=== PATIENT | male | born 1950 | race Caucasian/White ===

== ENCOUNTER 2018-03-21 10:11 | Inpatient (IN) | payer MEDICARE, OTHER, SELFPAY ==
[2018-03-21 10:11] VITALS: BP 143/76; PULSE 101; RESP 16; TEMP 36.8; O2SAT 100; BMI 32.5
--- NOTE | 2018-03-21 10:32 | ED.VISSUMM ---
- ER Visit Summary Date of Service: 03/21/18 Chief Complaint: [] Left great toe infection diabetes History of Present Illness: The patient is a 67 M [] left great toe ulcer for a month or 2 he had difficulty obtaining access to the [facility] wound care center reports he woke this morning had a high fever and his left great toe was red and swollen. He has had no trauma to the area no foreign body his diabetes is generally well controlled is no other complaints, he does recall prior infection to that area of the foot related to a metallic foreign body, he recovered from, he has had no recent exposure to foreign bodies Physical Examination: [] Sitting comfortably in the bed he has an obvious infection involving the left great toe head neck chest are unremarkable the lungs are clear the abdomen soft nontender the left lower leg there is obvious warmth and swelling involving the entire great toe at the base of the great toe there is a circular ulcer that has an odor to it no obvious drainage cultures were obtained, dorsalis pedis pulses intact there is no obvious crepitance he is able to flex slightly at the IP joint but complains of pain there is some redness from the toe into the foot it does not extend beyond the ankle the ankle is uninvolved and this is the only lesion to the foot the right foot is unremarkable and the rest of his exam is unremarkable Test Results: [] Emergency Department Course and Treatment: [] Reported fever infection erythema this from the possibility of diabetic foot infection screening labs obtained IV antibiotics wound culture sent Patient's her x-rays show nothing acute, the lab studies are also generally unremarkable see those reports, he was started on IV fluids antibiotics given his age the fact he has diabetes the sudden onset of the fever and the redness and the ulcer and the possibility of more systemic symptoms I have asked the hospital see the patient for further evaluation and admission, they will pursue orthopedic or podiatry consultation on inpatient basis Treatment Plan: [] Disposition: [] Admit stable pending hospitalist evaluation Impression: [] Diabetic foot infection This note was generated with [email or web address] dictation software. It may contain incorrect words, spelling, and punctuation that were not noted in review of the chart prior to signing ED Disposition - Plan for ED Patient: Chief Complaint: Wound Referrals: Malik Valero III, MD [Primary Care Provider] -
[2018-03-21] MEDS: Ondansetron 4 MG/2 ML Vial IV (11:04)
[2018-03-21] MEDS: morphine 8 MG/ML Syringe IV (11:04)
[2018-03-21] MEDS: Diphth,Pertuss(Acell),Tet Vac 0.5 ML Vial IM (11:04)
[2018-03-21 11:28] LABS: Absolute Lymphocyte Count 1.56 X10^3/ul (0.83-4.51); Absolute Neutrophil Count 7.6 X10^3/uL (2.0-7.7); Basophil# 0.02 X10^3/uL; Basophil% 0.2 % (0-1); Eosinophil# 0.17 X10^3/uL; Eosinophils% 1.6 % (0-5); Hemoglobin 13.3 g/dl (13.0-16.5); Lymphocyte # 1.56 X10^3/ul (4.0); Lymphocyte % 15.1 % (19-41); Mean Corp Hgb Conc 33.3 g/gl (32-36); Mean Corpuscular Volume 87.1 fL (80-94); Monocyte# 1.04 X10^3/uL; Neutrophil # 7.56 X10^3/uL (2.7-7.7); POSITIVE COUNT NO; POSITIVE DIFFERENTIAL NO; POSITIVE MORPHOLOGY NO; Platelet Count 328 K/mm3 (150-450); RBC Distribution Width CV 12.9 % (11.6-14.6); RBC Distribution Width SD 41.6 fl (35.1-43.9); Red Blood Count 4.59 M/mm3 (4.6-6.2); White Blood Count 10.4 K/mm3 (4.4-11.0)
--- NOTE | 2018-03-21 11:30 | RAD_ITS ---
STUDY: X-RAY - LEFT FOOT CLINICAL: Male, 67 years old. Infection of the big toe. TECHNIQUE: 3 view(s) of the foot. COMPARISON: None. FINDINGS: There is a small plantar calcaneal spur. Normal visualized subtalar, talonavicular, calcaneocuboid, tarsal and tarsometatarsal articulations. Normal metatarsi. Normal metatarsophalangeal joint of the great toe. There is a bipartite tibial sesamoid. Normal interphalangeal joint of the great toe. Normal phalanges of the great toe. Normal second through fifth metatarsophalangeal joints. Normal interphalangeal joints and phalanges of the lesser toes. Soft tissue swelling overlying the first toe. RAD/Foot min 3 Views IMPRESSION: Soft tissue swelling overlying the great toe. Electronically Signed: Rober Mckeon MD at 12:18 EDT Tel [phone], Service support ,
[2018-03-21 11:32] LABS: Bacteria 0 SEEN /hpf (None Seen); Mucous, Urine 0 SEEN /hpf (<or=2+); Red Blood Cells-Urine 0 SEEN /hpf (0-5); Squamous Epithelial Cells - UA 0 SEEN /hpf (0-5); White Blood Cells 0 SEEN /hpf (0-5)
[2018-03-21 11:33] LABS: Color, Urine Yellow (Yellow); Glucose, Dipstick 100 mg/dl (Normal); Ketone-Dipstick Negative (Negative); Leukocyte Esterase-Dipstick Negative /ul (Negative); Nitrite-Dipstick Negative (Negative); Occult Blood-Urine Negative /ul (Negative); Protein-Dipstick 100 mg/dl (Negative); Specific Gravity, Urine 1.015 (1.002-1.030); Urine Bilirubin Dipstick Negative (Negative); Urine Clarity Clear (Clear); Urine Urobilinogen Normal (Normal)
[2018-03-21 11:41] LABS: Anion Gap 10 (5-15); BUN 23 mg/dL (7-18); BUN/Creat Ratio 16.8 RATIO (10-20); Calcium,Total 9.9 mg/dL (8.5-10.1); Chloride 100 mmol/L (98-107); Creatinine, Serum 1.37 mg/dL (0.70-1.30); EST Glomerular Filtration Rate 55 mL/min (>60); Est Glom Filt Rate - Afr Amer 67 mL/min (>60); Estimated Creatinine Clearance 54.76 ml/min; Glucose 167 mg/dL (74-106); Potassium 4.1 mmol/L (3.5-5.1); Sodium Level 137 mmol/L (136-145)
[2018-03-21 12:11] VITALS: BP 136/80; PULSE 90; RESP 18; O2SAT 96
--- NOTE | 2018-03-21 13:09 | HP.PCM_ITS ---
Problem List (1) Left great toe plantar ulcer Status: Acute (2) Obesity Status: Chronic (3) Hypothyroidism Status: Chronic (4) HLD (hyperlipidemia) Status: Chronic (5) Diabetic autonomic neuropathy Status: Chronic (6) DM2 (diabetes mellitus, type 2) Status: Chronic (7) Benign essential HTN Status: Chronic History of Present Illness Date of Admission: 03/21/18 Chief Complaint: Left great toe ulcer for about 1- 2 months The patient is a 67 year old M with history of diabetes mellitus type 2, hypertension came to ER with left great toe being red and swollen along with fever at home today. Patient has chronic left great toe ulcer for about 1-2 months and progressively getting worse. He was seen by PCP Dr. Malik Valero iii and was referred to wound care 3 times but unfortunately lost his referral paper and could not get access to wound center until next Tuesday. He also has redness over left lower leg near ankle and he was seen in urgent center and was given cream. Per the patient it is getting better. ]Initial basic lab work done in the ER is unremarkable except BUN 23, creatinine 1.37. Serum glucose in BMP 167. Per patient, blood sugar at home stays between 100 -150 mg percent Patient is further admitted for IV antibiotics, podiatry consult and management of ulcer Past Medical History Past Medical History (Chronic Problems): Chronic Problems Obesity (Chronic) Hypothyroidism (Chronic) HLD (hyperlipidemia) (Chronic) Diabetic autonomic neuropathy (Chronic) DM2 (diabetes mellitus, type 2) (Chronic) Benign essential HTN (Chronic) Allergies No Known Allergies Allergy (Verified 03/21/18 10:55) Home Medications: Ambulatory Orders Medication Instructions Recorded Atorvastatin Calcium 40 mg PO DAILY 03/21/18 Hydrochlorothiazide 12.5 mg PO DAILY 03/21/18 Insulin Glargine/Lixisenatide 47 units SQ DAILY 03/21/18 [Soliqua 100 Unit-33 Mcg/ml Pen] Insulin Lispro [Humalog KwikPen] 13 units SQ TID 03/21/18 Levothyroxine Sodium 200 mcg PO DAILY 03/21/18 Metformin HCl [Glucophage] 1,000 mg PO BID 03/21/18 Quinapril HCl 40 mg PO DAILY 03/21/18 Surgical History: tonsillectomy Smoking Status: Never smoker - *Family History Paternal History Items: No pertinent history Review of Systems Constitutional: Reports: Chills, Fever. Denies: Weight Change HEENT: Denies: Head Aches, Sinus Congestion, Sinus Drainage Cardiovascular: Denies: Chest Pain, Palpitations Respiratory: Denies: Cough, Shortness of breath at rest, Sputum production Gastrointestinal: Denies: Abdominal Pain, Nausea, Vomiting Genitourinary: Denies: Dysuria Musculoskeletal: Reports: Joint Pain. Denies: Joint Tenderness Skin: Reports: Rash - Redness in the right foot and right lower leg near ankle/medial malleolus, Wounds Neurological: Denies: Numbness, Tingling, Focal weakness Psychiatric: Denies: Anxiety, Depression, Homicidal Ideations, Suicidal Ideations Hematologic/ Lymphatic: Denies: Easy Bruising, Easy Bleeding VTE Information - Inpt Only VTE Present on Admission: No VTE Mechan Device Prophylaxis: None VTE Pharm Prophylaxis ordered?: Yes Patient Problems: Active and Suspected Problems Left great toe plantar ulcer (Acute) - Physical Exam General: Alert, Oriented x3, Cooperative HEENT: Atraumatic, PERRLA, EOMI, Normocephalic Neck: Supple, No JVD, Negative Carotid Bruits Lungs: Clear to auscultation, Normal air movement Cardiovascular: Regular rate, Regular Rhythm, Normal S1, Normal S2, No murmurs Abdomen: Bowel Sounds Present, Soft, Non Tender, Non-Distended Extremities: No edema, Capillary Refill Less than 3 Seconds Skin: Ulcer/ Wound - Deep ulcer present on the plantar aspect of left great toe. Dry wound with a scant secretion, Rash Present - Erythematous rash present around the right great toe. Erythematous, circular patch of his skin over right lower leg; proximal to medial malleolus. Seems fungal/tinea infection. Rough on texture, probably from topical cream use Musculoskeletal: No Tenderness to Palpation of Joints or Extremities, Arthritic Changes Neurological: Cranial nerves II-XII grossly intact Psych/Mental Status: Normal Affect, Appropriate Vital Signs Temp Pulse Resp BP Pulse Ox 98.2 F 90 18 136/80 H 96 03/21/18 10:11 03/21/18 12:11 03/21/18 12:11 03/21/18 12:11 03/21/18 12:11 Oxygen Delivery Method Room Air Weight: 227 lb 1.218 oz Body Mass Index (BMI) 32.5 Laboratory Tests Past 24 Hrs 03/21/18 03/21/18 03/21/18 11:05 11:05 11:27 WBC 10.4 RBC 4.59 L Hgb 13.3 Hct 40.0 MCV 87.1 MCH 29.0 MCHC 33.3 RDW 12.9 RDW Differential 41.6 Plt Count 328 MPV 10.0 Immature Gran % (Auto) 0.100 Neut % (Auto) 73.0 H Lymph % (Auto) 15.1 L [place] % (Auto) 10.0 Eos % (Auto) 1.6 Baso % (Auto) 0.2 Absolute Neuts (auto) 7.6 Absolute Lymphs (auto) 1.56 Total Counted Not Reportable Sodium 137 Potassium 4.1 Chloride 100 Carbon Dioxide 27.0 Anion Gap 10 BUN 23 H Creatinine 1.37 H Estim Creat Clear Calc 54.76 Est GFR (MDRD) Af Amer 67 Est GFR (MDRD) Non-Af 55 L BUN/Creatinine Ratio 16.8 Glucose 167 H Calcium 9.9 Urine Color Yellow Urine Clarity Clear Urine pH 5.0 Ur Specific [place] 1.015 Urine Protein 100 H Urine Glucose (UA) 100 H Urine Ketones Negative Urine Occult Blood Negative Urine Nitrite Negative Urine Bilirubin Negative Urine Urobilinogen Normal Ur Leukocyte Esterase Negative Urine RBC 0 SEEN Urine WBC 0 SEEN Ur Squamous Epith Cells 0 SEEN Urine Bacteria 0 SEEN Urine Mucus 0 SEEN Assessment/Plan All Active Problems Left great toe plantar ulcer (Acute) The patient is a 67 year old M with history of diabetes mellitus type 2, hypertension came to ER with left great toe being red and swollen along with fever at home today. Patient has chronic left great toe ulcer for about 1-2 months and progressively getting worse. He was seen by PCP Dr. Malik Valero iii and was referred to wound care 3 times but unfortunately lost his referral paper and could not get access to wound center until next Tuesday. He also has redness over left lower leg near ankle and he was seen in urgent center and was given cream. Per the patient it is getting better. ]Initial basic lab work done in the ER is unremarkable except BUN 23, creatinine 1.37. Serum glucose in BMP 167. Per patient, blood sugar at home stays between 100 -150 mg percent Patient is further admitted for IV antibiotics, podiatry consult and management of ulcer 1. Left great toe deep soft tissue infection rule out osteomyelitis, diabetic ulcer: Patient is being admitted on [facility] floor. Patient had IV vancomycin and Zosyn in the ER. Started on IV cefazolin. Upper Shaper consult. MRI left foot ordered. 2. Left lower leg peripheral arterial disease: left posterior tibial and dorsal pedis artery are diminished in volume as compared to right. Lower extremity arterial Doppler ordered. Will start on the Plavix 3. Diabetes mellitus type 2: A1c tomorrow a.m. Accu-Chek before meals and at bedtime and cover with NovoLog sliding scale. Hold metformin. 4. Hypertension and dyslipidemia, hypothyroidism: Home medication reconciliation done. Fasting profile tomorrow a.m. TSH and FT4 tomorrow a.m. Continue levothyroxine. DVT prophylaxis: On Lovenox 40 mg subcut daily. Code Visit Inpatient E&M: 78899 In Hosp L3
[2018-03-21 13:29] VITALS: BMI 32.8
[2018-03-21 13:30] VITALS: BP 138/57; PULSE 87; RESP 16; TEMP 36.7; O2SAT 100
--- NOTE | 2018-03-21 13:34 | MRI_ITS ---
STUDY: MRI LEFT FOREFOOT WITHOUT CONTRAST REASON FOR EXAM: Male, 67 years old. Ulcer of the left great toe x2 months. Increased redness and inflammation TECHNIQUE: Standardized fat and water weighted pulse sequences were obtained in all 3 orthogonal planes. COMPARISON: X-ray March 21, 2018. MRI February 20, 2013 FINDINGS: There is focal defect in the plantar surface of the great toe consistent with wound, series 4 image 03/05. There is subcutaneous edema of the first toe. There is degenerative arthrosis and joint effusion of the metatarsophalangeal joint of the hallux. There is a bipartite tibial sesamoid. Normal interphalangeal joint of the hallux. Marrow edema distal osteomyelitis of the proximal and distal phalanges of the great toe, series 8 images 01/28 through . Normal medial and lateral heads of the flexor hallucis brevis tendons. Normal flexor and extensor hallucis longus tendons. Normal second through fifth metatarsophalangeal (MTP) joints. Normal interphalangeal joints of the second through fifth toes. Normal proximal, middle and distal phalanges of the second through fifth toes. Normal first through fourth intermetatarsal spaces. Normal flexor and extensor tendons of the second through fifth toes. Normal visualized metatarsi. There is diffuse atrophy of the intrinsic muscles of the forefoot consistent with a peripheral neuropathy. MRI/Lower Ext/No Jt/w/o IMPRESSION: Osteomyelitis of the phalanges of the great toe. Electronically Signed: Chris Aguilar MD at 16:19 EDT , Service support ,
[2018-03-21 13:37] VITALS: BMI 32.8
[2018-03-21] MEDS: 0.9% Normal Saline 1,000 ML 75 ML IV (14:10)
[2018-03-21 15:56] LABS: M R Staph aureus DNA By PCR Negative (Negative); Probe Check PASS; Specimen Processing Control PASS; Staph aureus DNA By PCR NEGATIVE (Negative)
[2018-03-21] MEDS: Cefazolin 1 GM/50 ML BAG IV ×2 (16:08→21:50)
[2018-03-21] MEDS: Clopidogrel Bisulfate 75 MG Tablet PO (16:08)
[2018-03-21] MEDS: Insulin Lispro 100 UNIT/ML INSULN.PEN SQ ×2 (16:42→21:51)
[2018-03-21] MEDS: Insulin Lispro 100 UNIT/ML INSULN.PEN 13 UNIT SC (16:42)
[2018-03-21] MEDS: oxyCODONE 5 MG Tablet PO (16:44)
[2018-03-21 16:46] LABS: Bedside Glucose 167 mg/dL (70-110)
--- NOTE | 2018-03-21 17:57 | LEAS ---
Arterial Study - Arterial Study Arterial Study: Bilateral lower extremity noninvasive arterial exam at rest Patient with a left great toe ulceration Right lower extremity The right PT and DP ankle-brachial index at rest are 1.171.07 respectively with a digital index of 0.77. The right posterior tibial and dorsalis pedis Doppler waveforms are triphasic. Volume pulse recordings demonstrate normal amplification at the calf. Ankle and digital waveforms are well maintained. Left lower extremity The left PT and DP ankle-brachial indices at rest are 0.97 and 0.78 respectively. Digital indices were not obtained. The left posterior tibial and dorsalis pedis demonstrate biphasic Doppler waveforms. The volume pulse recordings do not demonstrate amplification at the calf. The ankle and digital waveforms are otherwise well-maintained Impression Normal right lower extremity resting indices and waveforms Abnormal left lower extremity findings with slightly diminished indices and abnormal Doppler waveforms and diminished volume pulse recordings at the calf suspicious for mild to moderate occlusive disease. Suspected location would be femoral-popliteal. Findings would be in the range of mild vascular claudication. Critical ischemia is not identified. Kevin Valero M.D., F.A.C.S.
[2018-03-21] MEDS: Morphine 2 MG/ML Syringe IV ×2 (19:18→23:35)
[2018-03-21 20:02] VITALS: BP 140/59; PULSE 83; RESP 18; TEMP 37.4; O2SAT 96
--- NOTE | 2018-03-21 21:10 | CON.PCM_ITS ---
Reason for Consult Date of Consultation: 03/21/18 Reason for Consultation: Left great toe ulceration with infection History of Present Illness: The patient is a 67 year old with history of diabetes was seen today for left foot/hallux infection w/ ulceration. He relates his blood sugars are overall not controlled. He relates he developed an ulceration to the left 1st toe in January 2018, states he saw his PCP Dr. Valero, who he states referred him to the wound center. Patient relates he never received a call until yesterday and by that time the ulceration was significantly worse and he noticed swelling and redness. He relates this happened rapidly, so he decided to come to the ER for further evaluation. He denies any injury. He was subsequently admitted due to the findings. He has been started on IV antibiotics, and xray and MRI of the foot have been obtained. MRI showed osteomyelitis to the distal and proximal phalanges of the hallux. WBC is within normal limits, CRP is elevated. Patient is afebrile. He denies any pain to the 1st toe, but states he does have some pain to the top of his foot when walking. He is resting in bed comfortably, his is at bedside. He relates he retired Jun 2017. Past Medical History Past Medical History (Chronic Problems): Chronic Problems Obesity (Chronic) Hypothyroidism (Chronic) HLD (hyperlipidemia) (Chronic) Diabetic autonomic neuropathy (Chronic) DM2 (diabetes mellitus, type 2) (Chronic) Benign essential HTN (Chronic) Allergies No Known Allergies Allergy (Verified 03/21/18 10:55) Home Medications: Ambulatory Orders Medication Instructions Recorded Atorvastatin Calcium 40 mg PO QHS 03/21/18 Hydrochlorothiazide 12.5 mg PO QHS 03/21/18 Insulin Glargine/Lixisenatide 47 units SQ BREAKFAST 03/21/18 [Soliqua 100 Unit-33 Mcg/ml Pen] Insulin Lispro [Humalog KwikPen] 13 units SQ TIDCM 03/21/18 Levothyroxine Sodium 200 mcg PO DAILY 03/21/18 Metformin HCl [Glucophage] 1,000 mg PO BIDCM 03/21/18 Quinapril HCl 40 mg PO QHS 03/21/18 Surgical History: tonsillectomy Smoking Status: Never smoker - *Family History Paternal History Items: No pertinent history Review of Systems Constitutional: Denies: Chills, Fever, Night Sweats, Malaise, Fatigue Cardiovascular: Denies: Chest Pain Respiratory: Denies: Shortness of Breath Gastrointestinal: Denies: Nausea, Vomiting Musculoskeletal: Reports: Foot Pain Skin: Reports: Wounds Patient Problems: Active and Suspected Problems Left great toe plantar ulcer (Acute) Objective: MRI left foot from 03/21/18 - bone marrow edema to the proximal and distal phalanges of the hallux consistent with osteomyelitis. Left foot xrays from 03/21/18 - there is soft tissue edema to the hallux, there is no gas in the tissues, there is no cortical destruction or erosion noted to the hallux. - Physical Exam General: Alert, Oriented x3, Cooperative, No apparent distress Extremities: No clubbing, No cyanosis, Capillary Refill Less than 3 Seconds, No Calf Tenderness, - - There is ulceration platnar hallux at level of the sub hallux IPJ - probes to bone - the bone is hard, there is noted to be significant HPK nonviable tissue present to the ulcer site, there is noted to be some very mild drainage present in the wound consistent with infection, there is noted to be some maloder from the wound, there is cellulitis to the left hallux and extends to the dorsal forefoot - appears to be receeding distally from the marked line, there is no streaking, no visible abscess, no blistering, no crepitus present bilateral foot/ankle. No other open ulcerations bilateral foot/ankle, and no other areas of cellulitis bilateral foot/ankle. Large patch of eczema dermatitis to the medial ankle on the left and a small patch of eczema dermatitis to the medial ankle on the right. Sensation is diminished to the foot c/w peripheral neuropathy. Motor function is intact to the foot/ankle bilateral. Muscle strength intact to the foot/ankle bilateral. No gross instability to the foot/ankle bilateral. He reports some tenderness to the dorsal forefoot on the left side, but no other POP or pain on ROM to the foot/ankle bilateral. CFT < 2 seconds to all toes bilateral, no evidence of acute ischemia to the foot/ankle bilateral. DP nonpalpable left foot foot, PT palpable bilateral foot at this time. Noninvasive LEAS with findings concerning for mild to moderate PAD left, right is normal. Toenails 1-5 bilateral are dystrophic. Musculoskeletal: No Muscle Wasting Psych/Mental Status: Normal Affect, Appropriate, Alert and oriented to time, place, person, mood and affect Vital Signs Temp Pulse Resp BP Pulse Ox 99.3 F H 83 18 140/59 H 96 03/21/18 20:02 03/21/18 20:02 03/21/18 20:02 03/21/18 20:02 03/21/18 20:02 Oxygen Delivery Method Room Air Weight: 103.6 kg Body Mass Index (BMI) 32.8 Laboratory Tests Past 24 Hrs 03/21/18 03/21/18 03/21/18 11:05 11:05 11:05 WBC 10.4 RBC 4.59 L Hgb 13.3 Hct 40.0 MCV 87.1 MCH 29.0 MCHC 33.3 RDW 12.9 RDW Differential 41.6 Plt Count 328 MPV 10.0 Immature Gran % (Auto) 0.100 Neut % (Auto) 73.0 H Lymph % (Auto) 15.1 L [place] % (Auto) 10.0 Eos % (Auto) 1.6 Baso % (Auto) 0.2 Absolute Neuts (auto) 7.6 Absolute Lymphs (auto) 1.56 Total Counted Not Reportable Sodium 137 Potassium 4.1 Chloride 100 Carbon Dioxide 27.0 Anion Gap 10 BUN 23 H Creatinine 1.37 H Estim Creat Clear Calc 54.76 Est GFR (MDRD) Af Amer 67 Est GFR (MDRD) Non-Af 55 L BUN/Creatinine Ratio 16.8 Glucose 167 H Calcium 9.9 C-React Prot Ext Range 75.00 H Urine Color Urine Clarity Urine pH Ur Specific [place] Urine Protein Urine Glucose (UA) Urine Ketones Urine Occult Blood Urine Nitrite Urine Bilirubin Urine Urobilinogen Ur Leukocyte Esterase Urine RBC Urine WBC Ur Squamous Epith Cells Urine Bacteria Urine Mucus S.aureus Protein A PCR MRSA (PCR) 03/21/18 03/21/18 11:27 14:05 WBC RBC Hgb Hct MCV MCH MCHC RDW RDW Differential Plt Count MPV Immature Gran % (Auto) Neut % (Auto) Lymph % (Auto) [place] % (Auto) Eos % (Auto) Baso % (Auto) Absolute Neuts (auto) Absolute Lymphs (auto) Total Counted Sodium Potassium Chloride Carbon Dioxide Anion Gap BUN Creatinine Estim Creat Clear Calc Est GFR (MDRD) Af Amer Est GFR (MDRD) Non-Af BUN/Creatinine Ratio Glucose Calcium C-React Prot Ext Range Urine Color Yellow Urine Clarity Clear Urine pH 5.0 Ur Specific [place] 1.015 Urine Protein 100 H Urine Glucose (UA) 100 H Urine Ketones Negative Urine Occult Blood Negative Urine Nitrite Negative Urine Bilirubin Negative Urine Urobilinogen Normal Ur Leukocyte Esterase Negative Urine RBC 0 SEEN Urine WBC 0 SEEN Ur Squamous Epith Cells 0 SEEN Urine Bacteria 0 SEEN Urine Mucus 0 SEEN S.aureus Protein A PCR NEGATIVE MRSA (PCR) Negative POC Glucose 03/21/18 16:41 POC Glucose 167 H Assessment/Plan All Active Problems Left great toe plantar ulcer (Acute) Cellulitis left foot Ulceration down to bone left hallux with osteomyelitis present Diabetic Neuropathy Peripheral arterial disease Eczema dermatitis left and right ankle Reviewed patient's chart and diagnostic data. Reviewed findings with patient. Wound does probe to bone and MRI consistent with osteomyelitis to the distal and proximal phalanges of the left hallux, but overall bone appears to be intact. On exam bone appears intact, hard, and viable at this time. We discussed the options of amputation vs trying to salvage the toe. Reviewed possible benefits vs risks of each. Patient is against amputation at this time, and would like to proceed with attempts at salvage. I would be on board with attempts at salvage, however patinet understands he is ultimately at risk of limb loss. Recommend Infectious Disease consultation due to osteomyelitis, as well as vascular surgery consultation as patient has findings suspicious for mild to moderate occlusive disease per LEAS read. A culture has been obtained and results pending. Continue with board spectrum antibiotics, as he has already noted improvement since admission earlier today. After consent was obtained the ulceration was debrided in excisional fashion removing all nonviable tissue from the site, this was debrided to bleeding ulcer margins, debrided down to the bone layer. This was done using a 15 blade. Post debridement the ulceration measured 1.8cm x 0.7cm and probes to bone. The site was flushed out with copious amounts of normal saline solution, was painted with Betadine and Aquacel Ag and overlying gauze, kerlix and tarun dressing was applied. No anesthesia was needed due to patient's peripheral neuropathy. Hemostasis was achieved with light pressure and gauze. Advised patient strict nonweightbearing to the left foot. Reviewed importance of proper blood sugar control to optimize healing and optimize foot/ankle health. Triamcinolone 0.1% cream was prescribed for eczema dermatitis bilateral ankle (left worse than right). Podiatry will continue to follow. Thank you for consultation.
[2018-03-21] MEDS: Atorvastatin Calcium 40 MG Tablet PO (22:02)
[2018-03-21] MEDS: Lisinopril 40 MG Tablet PO (22:02)
[2018-03-21 23:22] LABS: Bedside Glucose 164 mg/dL (70-110)
[2018-03-21] MEDS: Zolpidem Tartrate 5 MG Tablet PO (23:35)
[2018-03-21] MEDS: 0.9% NaCl Peripheral Flush Adult/Peds IV (23:35)
[2018-03-22 02:02] VITALS: BP 140/60; PULSE 83; RESP 16; TEMP 37.5; O2SAT 94
[2018-03-22] MEDS: Cefazolin 1 GM/50 ML BAG IV (06:22)
[2018-03-22] MEDS: Levothyroxine 100 MCG Tablet 200 MCG PO (06:22)
[2018-03-22] MEDS: Morphine 2 MG/ML Syringe IV (07:02)
[2018-03-22] MEDS: 0.9% NaCl Peripheral Flush Adult/Peds IV (07:03)
[2018-03-22 07:41] VITALS: PULSE 79
[2018-03-22 07:41] LABS: Bedside Glucose 157 mg/dL (70-110)
[2018-03-22 07:44] VITALS: BP 143/76; PULSE 79; RESP 18; TEMP 37.3; O2SAT 97
[2018-03-22 08:29] LABS: Cholesterol 97 mg/dL (200); High Density Lipoprotein 32 mg/dL; T4 Free Direct 1.47 ng/dL (0.76-1.46); Thyroid Stim Hormone (TSH) 0.14 uIU/mL (0.358-3.74); Triglycerides 169 mg/dL; Very Low Density Lipoprotein 34 mg/dL (5-40)
[2018-03-22] MEDS: Insulin Lispro 100 UNIT/ML INSULN.PEN SQ ×4 (08:47→21:46)
[2018-03-22] MEDS: Insulin Lispro 100 UNIT/ML INSULN.PEN 13 UNIT SC ×3 (08:48→17:30)
[2018-03-22] MEDS: hydroCHLOROthiazide 12.5mg 12.5 MG PO (08:49)
[2018-03-22] MEDS: Clopidogrel Bisulfate 75 MG Tablet PO (08:50)
[2018-03-22 09:00] LABS: Hemoglobin A1c 7.8 % (4.2-6.3)
--- NOTE | 2018-03-22 09:50 | CASEMGMT ---
VINOD PINTO Face to Face with patient for initial transition planning/care coordination assessment. RN CM introduced self and role at [facility]. Patient lying in bed, alert and oriented. Patient willing to participate in assessment and is able to answer all questions appropriately. Care providers, pharmacy, and demographics verified. Patient wishes to discharge home will monitor for HHC based on coarse of treatment. Possible need for IV ATBs at discharge. Patient states he has no further needs or concerns at this time. CM to follow for discharge planning needs that may arise. PCP: Marylu Specialists: None Preferred Pharmacy: [facility] Insurance: [facility] Prescription Benefit: [facility] Living Will/HPOA: None, declined information LNOK: Living Arrangements: Lives with in 1 story home, independent. Transportation: Self/ DME/HHC: Patient has crutches, anticipate need for walker. Patient may need HHC if requires IV ATB at discharge. Disposition Plan: Patient to discharge home with family support and follow-up plans in place. Will need HHC if DC'd on IV ATB. Dian GREEN, RN, CM
--- NOTE | 2018-03-22 11:29 | PCM.HP.ID ---
Problem List (1) Osteomyelitis Status: Acute Reason for Consult: osteo Consulted by: Dr. Kellogg History of Present Illness: The patient is a 67 year old M h T2DM who presented with L 1st toe ulcer for past 2 months. No known inciting event, denies any neuropathy. No prior h/o MRSA or skin abscess. Foot had been relatively stable with no need for abx, and he was referred to wound center here. Over past few days, toe acutely became red, swollen, stabbing pain, and clear drainage. No fever or chills. No n/v/d. Given vanc and zosyn in ED, seen by Dr. Kellogg with podiatry, and ulcer debrided down to bone with cxs sent. Now on cefazolin. Full ROS performed and neg except as noted above. - Medical History Past Medical History (Chronic Problems): Chronic Problems Obesity (Chronic) Hypothyroidism (Chronic) HLD (hyperlipidemia) (Chronic) Diabetic autonomic neuropathy (Chronic) DM2 (diabetes mellitus, type 2) (Chronic) Benign essential HTN (Chronic) Allergies/Adverse Reactions: Allergies No Known Allergies Allergy (Verified 03/21/18 10:55) Home Medications: Ambulatory Orders Medication Instructions Recorded Atorvastatin Calcium 40 mg PO QHS 03/21/18 Hydrochlorothiazide 12.5 mg PO QHS 03/21/18 Insulin Glargine/Lixisenatide 47 units SQ BREAKFAST 03/21/18 [Soliqua 100 Unit-33 Mcg/ml Pen] Insulin Lispro [Humalog KwikPen] 13 units SQ TIDCM 03/21/18 Levothyroxine Sodium 200 mcg PO DAILY 03/21/18 Metformin HCl [Glucophage] 1,000 mg PO BIDCM 03/21/18 Quinapril HCl 40 mg PO QHS 03/21/18 - Social History Tobacco Use: non-smoker Vital Signs Temp Pulse Resp BP Pulse Ox 99.2 F H 79 18 143/76 H 97 03/22/18 07:44 03/22/18 07:44 03/22/18 07:44 03/22/18 07:44 03/22/18 07:44 Oxygen Delivery Method Room Air Weight: 103.6 kg Body Mass Index (BMI) 32.8 Microbiology Past 72 Hours 03/21/18 11:00 Gram Stain - Final Wound - Left Foot Wound Culture - Preliminary Mixed Gram Positive Organisms Laboratory Tests Past 24 Hrs 03/21/18 03/21/18 03/21/18 11:05 11:05 11:27 Sodium 137 Potassium 4.1 Chloride 100 Carbon Dioxide 27.0 Anion Gap 10 BUN 23 H Creatinine 1.37 H Estim Creat Clear Calc 54.76 Est GFR (MDRD) Af Amer 67 Est GFR (MDRD) Non-Af 55 L BUN/Creatinine Ratio 16.8 Glucose 167 H Hemoglobin A1c Calcium 9.9 C-React Prot Ext Range 75.00 H Triglycerides Cholesterol LDL Cholesterol VLDL Cholesterol HDL Cholesterol TSH Free T4 Urine Color Yellow Urine Clarity Clear Urine pH 5.0 Ur Specific [place] 1.015 Urine Protein 100 H Urine Glucose (UA) 100 H Urine Ketones Negative Urine Occult Blood Negative Urine Nitrite Negative Urine Bilirubin Negative Urine Urobilinogen Normal Ur Leukocyte Esterase Negative Urine RBC 0 SEEN Urine WBC 0 SEEN Ur Squamous Epith Cells 0 SEEN Urine Bacteria 0 SEEN Urine Mucus 0 SEEN S.aureus Protein A PCR MRSA (PCR) 03/21/18 03/22/18 03/22/18 14:05 07:46 07:46 Sodium Potassium Chloride Carbon Dioxide Anion Gap BUN Creatinine Estim Creat Clear Calc Est GFR (MDRD) Af Amer Est GFR (MDRD) Non-Af BUN/Creatinine Ratio Glucose Hemoglobin A1c 7.8 H Calcium C-React Prot Ext Range Triglycerides 169 Cholesterol 97 LDL Cholesterol 31 VLDL Cholesterol 34 HDL Cholesterol 32 L TSH 0.14 L Free T4 1.47 H Urine Color Urine Clarity Urine pH Ur Specific [place] Urine Protein Urine Glucose (UA) Urine Ketones Urine Occult Blood Urine Nitrite Urine Bilirubin Urine Urobilinogen Ur Leukocyte Esterase Urine RBC Urine WBC Ur Squamous Epith Cells Urine Bacteria Urine Mucus S.aureus Protein A PCR NEGATIVE MRSA (PCR) Negative - Other Studies Radiology: [] reviewed Other Studies: [] Route of nutrition/ use of supplements: [] Nutritional Intake: [] IV Site: [] Shore Catheter: [] - Physical Exam General: Alert, Oriented x3, Cooperative, No apparent distress HEENT: Atraumatic, PERRLA, EOMI Neck: Supple, No Nodes Lungs: Clear to auscultation, Normal air movement Cardiovascular: Regular rate, Regular Rhythm, No murmurs Abdomen: Soft, Non Tender, Non-Distended Extremities: Diminished Peripheral Pulses Skin: Ulcer/ Wound - Foot wrapped IV Site: Peripheral, without redness Musculoskeletal: No Tenderness to Palpation of Joints or Extremities Neurological: Cranial nerves II-XII grossly intact - Assessment/Plan Antibiotics: [] Assessment/Plan: [] Active and Suspected Problems Left great toe plantar ulcer (Acute) L 1st toe osteo with DM - s/p bedside debridement 03/[address] Kellogg. Cxs pending; gram stain showed heavy GPC, GNR, GPR. Will broadly cover with vanc/zosyn for now. Will follow, thank you.
--- NOTE | 2018-03-22 12:02 | PCM.PROGNOTE ---
Patient Problems: Active and Suspected Problems Left great toe plantar ulcer (Acute) Osteomyelitis (Acute) - Physical Exam Vital Signs Temp Pulse Resp BP Pulse Ox 99.2 F H 79 18 143/76 H 97 03/22/18 07:44 03/22/18 07:44 03/22/18 07:44 03/22/18 07:44 03/22/18 07:44 Oxygen Delivery Method Room Air Weight: 103.6 kg Body Mass Index (BMI) 32.8 Intake and Output for Last 24 Hours 03/20/18 03/21/18 03/22/18 23:59 23:59 23:59 Intake Total 2108 647 / 647 Balance 2108 647 / 647 Microbiology Past 72 Hours 03/21/18 11:00 Gram Stain - Final Wound - Left Foot Wound Culture - Preliminary Mixed Gram Positive Organisms Laboratory Tests Past 24 Hrs 03/21/18 03/21/18 03/22/18 11:05 14:05 07:46 Hemoglobin A1c C-React Prot Ext Range 75.00 H Triglycerides 169 Cholesterol 97 LDL Cholesterol 31 VLDL Cholesterol 34 HDL Cholesterol 32 L TSH 0.14 L Free T4 1.47 H S.aureus Protein A PCR NEGATIVE MRSA (PCR) Negative 03/22/18 07:46 Hemoglobin A1c 7.8 H C-React Prot Ext Range Triglycerides Cholesterol LDL Cholesterol VLDL Cholesterol HDL Cholesterol TSH Free T4 S.aureus Protein A PCR MRSA (PCR) POC Glucose 03/22/18 03/21/18 03/21/18 07:36 21:48 16:41 POC Glucose 157 H 164 H 167 H Medical Necessity - Tobacco Use Smoking Status: Never smoker Assessment/Plan All Active Problems Left great toe plantar ulcer (Acute) Osteomyelitis (Acute)
--- NOTE | 2018-03-22 12:17 | PCM.RX.CS ---
Consult Pharmacy has been consulted to manage selected antiobiotic: Vancomycin Type of Consult: New start Suspected Infection: Osteomyelitis Prior Doses of Antibiotics Received/Current Regimen: Received vancomycin 1250mg IV x1 in ER yesterday 03/21/18 at 12:11. Labs: Sodium 137 mmol/L (136-145) 03/21/18 11:05 Potassium 4.1 mmol/L (3.5-5.1) 03/21/18 11:05 Chloride 100 mmol/L (98-107) 03/21/18 11:05 Carbon Dioxide 27.0 mmol/L (21.0-32.0) 03/21/18 11:05 Anion Gap 10 (5-15) 03/21/18 11:05 BUN 23 mg/dL (7-18) H 03/21/18 11:05 Creatinine 1.37 mg/dL (0.70-1.30) H 03/21/18 11:05 Est GFR (MDRD) Af Amer 67 mL/min (>60) 03/21/18 11:05 Est GFR (MDRD) Non-Af 55 mL/min (>60) L 03/21/18 11:05 BUN/Creatinine Ratio 16.8 RATIO (10-20) 03/21/18 11:05 Glucose 167 mg/dL (74-106) H 03/21/18 11:05 Microbiology: Microbiology 03/21/18 11:00 Wound - Left Foot Gram Stain - Final 03/21/18 11:00 Wound - Left Foot Wound Culture - Preliminary Mixed Gram Positive Organisms Weight used for dosin.6 kg Estimated Creatinine Clearance: 55 ml/min Goal Trough: 15-20 mcg/mL Pharmacy Plan for Drug Dosing: Patient did receive the above mentioned 1250mg dose in ER yesterday but since it has been 24 hours since it was given and since it was a small dose for the patient's weight, the plan is to proceed with the initial loading dose as ordered (2000mg) x1, then continue with 1000mg IV q12h after that. A trough will be obtained prior to the 4th dose. Pharmacy Service will continue to monitor and adjust dosing as required. Follow-Up Labs: Trough Vancomycin Labs to be done on [date and time ordered]: 03/23/18 at 23:30 before the dose at midnight
--- NOTE | 2018-03-22 12:25 | NURSING ---
wound photo: left great toe (plantar view)
--- NOTE | 2018-03-22 12:25 | NURSING ---
wound photo: left great toe (dorsal view)
[2018-03-22 12:36] LABS: Bedside Glucose 190 mg/dL (70-110)
--- NOTE | 2018-03-22 13:17 | PCM.PROGNOTE ---
Patient Problems: Active and Suspected Problems Left great toe plantar ulcer (Acute) Osteomyelitis (Acute) Subjective: Patient was seen today for follow up on left great toe infection. He has no new complaints, no complaints of fever, chills, nausea or vomiting. He was resting comfortably in bed, at bedside. ID saw patient and adjusted patient's antibiotics. - Physical Exam General: Alert, Oriented x3, Cooperative, No apparent distress Vital Signs Temp Pulse Resp BP Pulse Ox 99.2 F H 79 18 143/76 H 97 03/22/18 07:44 03/22/18 07:44 03/22/18 07:44 03/22/18 07:44 03/22/18 07:44 Oxygen Delivery Method Room Air Weight: 103.6 kg Body Mass Index (BMI) 32.8 Intake and Output for Last 24 Hours 03/20/18 03/21/18 03/22/18 23:59 23:59 23:59 Intake Total 2109 / 2109 1456 / 1456 Balance 2109 / 2109 1456 / 1456 Microbiology Past 72 Hours 03/21/18 11:00 Gram Stain - Final Wound - Left Foot Wound Culture - Preliminary Mixed Gram Positive Organisms Laboratory Tests Past 24 Hrs 03/21/18 03/21/18 03/22/18 11:05 14:05 07:46 Hemoglobin A1c C-React Prot Ext Range 75.00 H Triglycerides 169 Cholesterol 97 LDL Cholesterol 31 VLDL Cholesterol 34 HDL Cholesterol 32 L TSH 0.14 L Free T4 1.47 H S.aureus Protein A PCR NEGATIVE MRSA (PCR) Negative 03/22/18 07:46 Hemoglobin A1c 7.8 H C-React Prot Ext Range Triglycerides Cholesterol LDL Cholesterol VLDL Cholesterol HDL Cholesterol TSH Free T4 S.aureus Protein A PCR MRSA (PCR) POC Glucose 03/22/18 03/22/18 03/21/18 12:29 07:36 21:48 POC Glucose 190 H 157 H 164 H 03/21/18 16:41 POC Glucose 167 H Medical Necessity - Tobacco Use Smoking Status: Never smoker Assessment/Plan All Active Problems Left great toe plantar ulcer (Acute) Osteomyelitis (Acute) Cellulitis left foot Ulceration down to bone left hallux with osteomyelitis present Diabetic Neuropathy Peripheral arterial disease Eczema dermatitis left and right ankle Improvement noted compared to yesterday. Patient wants to continue with attempts at salvage of the toe. Continue to follow cultures and continue with antibiotic therapy per ID service. Patient has findings suspicious for mild to moderate occlusive disease per LEAS read - recommend patient follow up with vascular surgery. Continue with local wound care, site was packed w/ Iodoform and overlying gauze dressing changes - change daily. Advised patient strict nonweightbearing to the ulcer site left foot. Reviewed importance of proper blood sugar control to optimize healing and optimize foot/ankle health. Triamcinolone 0.1% cream was prescribed for eczema dermatitis bilateral ankle (left worse than right). Podiatry will continue to follow. Thank you for consultation.
[2018-03-22 14:26] VITALS: BP 140/51; PULSE 84; PULSE 90; RESP 18; TEMP 37.3; O2SAT 94
[2018-03-22] MEDS: Piperacil/Tazobactam 3.375 GM/50 ML ML IV ×2 (14:57→21:46)
--- NOTE | 2018-03-22 15:14 | PCM.PN.HOSP ---
Patient Problems: Active and Suspected Problems Left great toe plantar ulcer (Acute) Osteomyelitis (Acute) Subjective: Low Grade Fever, T 99.5 F. Vitals/I&O's: Vital Signs Temp Pulse Resp BP Pulse Ox 99.2 F H 90 18 140/51 H 94 03/22/18 14:26 03/22/18 14:26 03/22/18 14:26 03/22/18 14:26 03/22/18 14:26 Oxygen Delivery Method Room Air Weight: 228 lb 6.382 oz Body Mass Index (BMI) 32.8 Intake and Output for Last 24 Hours 03/20/18 03/21/18 03/22/18 23:59 23:59 23:59 Intake Total 2108 1456 / 1456 Balance 2108 1456 / 1456 General: Alert, Oriented x3, Cooperative HEENT: Atraumatic, PERRLA, EOMI, Normocephalic Neck: Supple, No JVD, Negative Carotid Bruits Lungs: Clear to auscultation, Normal air movement Cardiovascular: Regular rate, Regular Rhythm, Normal S1, Normal S2, No murmurs Abdomen: Bowel Sounds Present, Soft, Non Tender, Non-Distended Extremities: No edema, Capillary Refill Less than 3 Seconds Skin: Ulcer/ Wound - Left great toe ulcer was debrided bedside by coin purse framer. Dressing is dry, Rash Present Musculoskeletal: No Tenderness to Palpation of Joints or Extremities Neurological: Cranial nerves II-XII grossly intact Psych/Mental Status: Normal Affect, Appropriate Microbiology Past 72 Hours 03/21/18 11:00 Wound - Left Foot Gram Stain - Final 03/21/18 11:00 Wound - Left Foot Wound Culture - Preliminary Mixed Gram Positive Organisms Laboratory Results 03/21/18 14:05: S.aureus Protein A PCR NEGATIVE, MRSA (PCR) Negative 03/21/18 16:41: POC Glucose 167 H 03/21/18 21:48: POC Glucose 164 H 03/22/18 07:36: POC Glucose 157 H 03/22/18 07:46: Triglycerides 169, Cholesterol 97, LDL Cholesterol 31, VLDL Cholesterol 34, HDL Cholesterol 32 L, TSH 0.14 L, Free T4 1.47 H 03/22/18 07:46: Hemoglobin A1c 7.8 H 03/22/18 12:29: POC Glucose 190 H Current Medications Acetaminophen (Tylenol) 650 mg PO Q6H PRN PRN PRN Reason: Mild Pain (scale 0-3)/T>100.7 Al Hydroxide/Mg Hydroxide (Mylanta Ii) 30 ml PO Q6H PRN PRN PRN Reason: Gastric Burning Atorvastatin Calcium (Lipitor) 40 mg PO QHS [facility] Betamethasone Valerate (Valisone 0.1% Cream) 1 applic TOPICAL BID [facility]; Protocol Last Admin: 03/22/18 08:50 Dose: 1 applicatio Bisacodyl (Dulcolax) 10 mg RECTAL DAILY PRN PRN PRN Reason: Constipation Clopidogrel Bisulfate (Plavix) 75 mg PO DAILY [facility] Last Admin: 03/22/18 08:50 Dose: 75 mg Dextrose (D50w Syringe) 0 gm IV X1 PRN; Protocol PRN Reason: Hypoglycemia Docusate Sodium (Colace) 200 mg PO BID PRN PRN PRN Reason: Constipation Glucagon () 1 mg IM .X1 PRN PRN Reason: Hypoglycemia Hydrochlorothiazide (Hydrochlorothiazide) 12.5 mg PO DAILY [facility] Last Admin: 03/22/18 08:49 Dose: 12.5 mg Piperacillin Sod/Tazobactam Sod (Zosyn) 3.375 gm in 50 mls @ 12.5 mls/hr IV Q8 [facility] Last Admin: 03/22/18 14:57 Dose: 12.5 mls/hr Vancomycin IV Pharmacy to Dose (1 ea/ Sodium Chloride) 500 mls @ 250 mls/hr IV X1 PRN; Protocol PRN Reason: Rx to Dose Vancomycin HCl (Vancomycin) 1,000 mg in 200 mls @ 200 mls/hr IV Q12H [facility] Insulin Glargine (Lantus (Bkc)) 45 units SC DAILY [facility] Last Admin: 03/22/18 08:48 Dose: 45 u Insulin Human Lispro (Humalog Kwikpen (Bkc)) 0 unit SQ ACHS [facility]; Protocol Last Admin: 03/22/18 12:56 Dose: 2 units Insulin Human Lispro (Humalog Kwikpen (Bkc)) 13 unit SC TIDCM [facility] Last Admin: 03/22/18 12:57 Dose: 13 units Levothyroxine Sodium (Synthroid) 175 mcg PO DAILY@0600 [facility] Lisinopril (Zestril) 40 mg PO QHS [facility] Morphine Sulfate () 1 - 2 mg IV Q4H PRN PRN PRN Reason: SEVERE PAIN (6-10/10) Last Admin: 03/22/18 07:02 Dose: 2 mg Ondansetron HCl (Zofran) 4 mg IV Q8H PRN PRN PRN Reason: Nausea Oxycodone HCl (Oxyir) 5 mg PO Q4H PRN PRN PRN Reason: Moderate Pain (pain scale 4-5) Last Admin: 03/21/18 16:44 Dose: 5 mg Sodium Chloride () 5 - 30 ml IV UD PRN PRN Reason: SALINE FLUSH Last Admin: 03/22/18 07:03 Dose: 10 ml Zolpidem Tartrate (Ambien (Generic)) 5 mg PO QHS PRN PRN PRN Reason: INSOMNIA Last Admin: 03/21/18 23:35 Dose: 5 mg Medical Necessity - Tobacco Use Smoking Status: Never smoker Assessment/Plan All Active Problems Left great toe plantar ulcer (Acute) Osteomyelitis (Acute) The patient is a 67 year old M with history of diabetes mellitus type 2, hypertension came to ER with left great toe being red and swollen along with fever at home today. Patient has chronic left great toe ulcer for about 1-2 months and progressively getting worse. He was seen by PCP Dr. Malik Valero iii and was referred to wound care 3 times but unfortunately lost his referral paper and could not get access to wound center until next Tuesday. He also has redness over left lower leg near ankle and he was seen in urgent center and was given cream. Per the patient it is getting better. ]Initial basic lab work done in the ER is unremarkable except BUN 23, creatinine 1.37. Serum glucose in BMP 167. Per patient, blood sugar at home stays between 100 -150 mg percent Patient is further admitted for IV antibiotics, podiatry consult and management of ulcer 1. Left great toe, both proximal and distal phalanges osteomyelitis , diabetic ulcer: Patient is being admitted on MedSurg floor. Patient had IV vancomycin and Zosyn in the ER. CRP 75. wound prelim Gram stain shows mixed gram-positive cocci, gram-negative rods, gram-positive rods. The patient was seen by ID and recommended to continue IV vancomycin and Zosyn. MRI left foot shows osteomyelitis of both proximal and distal phalanges of left great toe. Patient elected conservative antibiotic management versus left great toe amputation and Dr. Kellogg will follow up after 3 weeks of IV antibiotics to see the response. PICC line ordered. Patient will need long-term, about 4-6 weeks IV antibiotics depending upon wound culture and further antibiotic response. 2. Left lower leg peripheral arterial disease: left posterior tibial and dorsal pedis artery are diminished in volume as compared to right. Lower extremity arterial Doppler VANESA right 1.17, left 0.97 suggestive of mild atherosclerotic peripheral arterial disease of left leg. Dr. Kellogg inform the patient has seen Dr. Kevin Valero in the past and can follow-up in the office. Continue Plavix 3. Diabetes mellitus type 2, uncontrolled: A1c 7.8. Accu-Chek before meals and at bedtime and cover with NovoLog sliding scale. Blood sugar here is reasonably well controlled. Hold metformin. 4. Hypertension and dyslipidemia, hypothyroidism: Home medication reconciliation done. Lipid profile HDL 32, LDL 31 and triglyceride normal. FT4 1.47, TSH 0.14 suggestive of over dose of levothyroxine. Levothyroxine decreased to 175 mcg daily. DVT prophylaxis: On Lovenox 40 mg subcut daily. Clinical Impression(s) from Imaging Studies Foot X-Ray 03/21/18 11:30 IMPRESSION: Soft tissue swelling overlying the great toe. Lower Extremity MRI 03/21/18 13:34 IMPRESSION: Osteomyelitis of the phalanges of the great toe. Microbiology Past 72 Hours 03/21/18 11:00 Wound - Left Foot Gram Stain - Final 03/21/18 11:00 Wound - Left Foot Wound Culture - Preliminary Mixed Gram Positive Organisms Laboratory Results 03/21/18 14:05: S.aureus Protein A PCR NEGATIVE, MRSA (PCR) Negative 03/21/18 16:41: POC Glucose 167 H 03/21/18 21:48: POC Glucose 164 H 03/22/18 07:36: POC Glucose 157 H 03/22/18 07:46: Triglycerides 169, Cholesterol 97, LDL Cholesterol 31, VLDL Cholesterol 34, HDL Cholesterol 32 L, TSH 0.14 L, Free T4 1.47 H 03/22/18 07:46: Hemoglobin A1c 7.8 H 03/22/18 12:29: POC Glucose 190 H Code Visit Inpatient E&M: [id number] [facility] L[facility]
--- NOTE | 2018-03-22 15:24 | PN_ITS ---
Patient Problems: Active and Suspected Problems Left great toe plantar ulcer (Acute) Osteomyelitis (Acute) Subjective: Low Grade Fever, T 99.5 F. Vitals/I&O's: Vital Signs Temp Pulse Resp BP Pulse Ox 99.2 F H 90 18 140/51 H 94 03/22/18 14:26 03/22/18 14:26 03/22/18 14:26 03/22/18 14:26 03/22/18 14:26 Oxygen Delivery Method Room Air Weight: 228 lb 6.382 oz Body Mass Index (BMI) 32.8 Intake and Output for Last 24 Hours 03/20/18 03/21/18 03/22/18 23:59 23:59 23:59 Intake Total 2108 1456 / 1456 Balance 2108 1456 / 1456 General: Alert, Oriented x3, Cooperative HEENT: Atraumatic, PERRLA, EOMI, Normocephalic Neck: Supple, No JVD, Negative Carotid Bruits Lungs: Clear to auscultation, Normal air movement Cardiovascular: Regular rate, Regular Rhythm, Normal S1, Normal S2, No murmurs Abdomen: Bowel Sounds Present, Soft, Non Tender, Non-Distended Extremities: No edema, Capillary Refill Less than 3 Seconds Skin: Ulcer/ Wound - Left great toe ulcer was debrided bedside by musical instrument maker or repairer. Dressing is dry, Rash Present Musculoskeletal: No Tenderness to Palpation of Joints or Extremities Neurological: Cranial nerves II-XII grossly intact Psych/Mental Status: Normal Affect, Appropriate Microbiology Past 72 Hours 03/21/18 11:00 Wound - Left Foot Gram Stain - Final 03/21/18 11:00 Wound - Left Foot Wound Culture - Preliminary Mixed Gram Positive Organisms Laboratory Results 03/21/18 14:05: S.aureus Protein A PCR NEGATIVE, MRSA (PCR) Negative 03/21/18 16:41: POC Glucose 167 H 03/21/18 21:48: POC Glucose 164 H 03/22/18 07:36: POC Glucose 157 H 03/22/18 07:46: Triglycerides 169, Cholesterol 97, LDL Cholesterol 31, VLDL Cholesterol 34, HDL Cholesterol 32 L, TSH 0.14 L, Free T4 1.47 H 03/22/18 07:46: Hemoglobin A1c 7.8 H 03/22/18 12:29: POC Glucose 190 H Current Medications Acetaminophen (Tylenol) 650 mg PO Q6H PRN PRN PRN Reason: Mild Pain (scale 0-3)/T>100.7 Al Hydroxide/Mg Hydroxide (Mylanta Ii) 30 ml PO Q6H PRN PRN PRN Reason: Gastric Burning Atorvastatin Calcium (Lipitor) 40 mg PO QHS [facility] Betamethasone Valerate (Valisone 0.1% Cream) 1 applic TOPICAL BID [facility]; Protocol Last Admin: 03/22/18 08:50 Dose: 1 applicatio Bisacodyl (Dulcolax) 10 mg RECTAL DAILY PRN PRN PRN Reason: Constipation Clopidogrel Bisulfate (Plavix) 75 mg PO DAILY [facility] Last Admin: 03/22/18 08:50 Dose: 75 mg Dextrose (D50w Syringe) 0 gm IV X1 PRN; Protocol PRN Reason: Hypoglycemia Docusate Sodium (Colace) 200 mg PO BID PRN PRN PRN Reason: Constipation Glucagon () 1 mg IM .X1 PRN PRN Reason: Hypoglycemia Hydrochlorothiazide (Hydrochlorothiazide) 12.5 mg PO DAILY [facility] Last Admin: 03/22/18 08:49 Dose: 12.5 mg Piperacillin Sod/Tazobactam Sod (Zosyn) 3.375 gm in 50 mls @ 12.5 mls/hr IV Q8 [facility] Last Admin: 03/22/18 14:57 Dose: 12.5 mls/hr Vancomycin IV Pharmacy to Dose (1 ea/ Sodium Chloride) 500 mls @ 250 mls/hr IV X1 PRN; Protocol PRN Reason: Rx to Dose Vancomycin HCl (Vancomycin) 1,000 mg in 200 mls @ 200 mls/hr IV Q12H [facility] Insulin Glargine (Lantus (Bkc)) 45 units SC DAILY [facility] Last Admin: 03/22/18 08:48 Dose: 45 u Insulin Human Lispro (Humalog Kwikpen (Bkc)) 0 unit SQ ACHS [facility]; Protocol Last Admin: 03/22/18 12:56 Dose: 2 units Insulin Human Lispro (Humalog Kwikpen (Bkc)) 13 unit SC TIDCM [facility] Last Admin: 03/22/18 12:57 Dose: 13 units Levothyroxine Sodium (Synthroid) 175 mcg PO DAILY@0600 [facility] Lisinopril (Zestril) 40 mg PO QHS [facility] Morphine Sulfate () 1 - 2 mg IV Q4H PRN PRN PRN Reason: SEVERE PAIN (6-10/10) Last Admin: 03/22/18 07:02 Dose: 2 mg Ondansetron HCl (Zofran) 4 mg IV Q8H PRN PRN PRN Reason: Nausea Oxycodone HCl (Oxyir) 5 mg PO Q4H PRN PRN PRN Reason: Moderate Pain (pain scale 4-5) Last Admin: 03/21/18 16:44 Dose: 5 mg Sodium Chloride () 5 - 30 ml IV UD PRN PRN Reason: SALINE FLUSH Last Admin: 03/22/18 07:03 Dose: 10 ml Zolpidem Tartrate (Ambien (Generic)) 5 mg PO QHS PRN PRN PRN Reason: INSOMNIA Last Admin: 03/21/18 23:35 Dose: 5 mg Medical Necessity - Tobacco Use Smoking Status: Never smoker Assessment/Plan All Active Problems Left great toe plantar ulcer (Acute) Osteomyelitis (Acute) The patient is a 67 year old M with history of diabetes mellitus type 2, hypertension came to ER with left great toe being red and swollen along with fever at home today. Patient has chronic left great toe ulcer for about 1-2 months and progressively getting worse. He was seen by PCP Dr. Malik Valero iii and was referred to wound care 3 times but unfortunately lost his referral paper and could not get access to wound center until next Tuesday. He also has redness over left lower leg near ankle and he was seen in urgent center and was given cream. Per the patient it is getting better. ]Initial basic lab work done in the ER is unremarkable except BUN 23, creatinine 1.37. Serum glucose in BMP 167. Per patient, blood sugar at home stays between 100 -150 mg percent Patient is further admitted for IV antibiotics, podiatry consult and management of ulcer 1. Left great toe, both proximal and distal phalanges osteomyelitis , diabetic ulcer: Patient is being admitted on MedSurg floor. Patient had IV vancomycin and Zosyn in the ER. CRP 75. wound prelim Gram stain shows mixed gram-positive cocci, gram-negative rods, gram-positive rods. The patient was seen by ID and recommended to continue IV vancomycin and Zosyn. MRI left foot shows osteomyelitis of both proximal and distal phalanges of left great toe. Patient elected conservative antibiotic management versus left great toe amputation and Dr. Kellogg will follow up after 3 weeks of IV antibiotics to see the response. PICC line ordered. Patient will need long-term, about 4-6 weeks IV antibiotics depending upon wound culture and further antibiotic response. 2. Left lower leg peripheral arterial disease: left posterior tibial and dorsal pedis artery are diminished in volume as compared to right. Lower extremity arterial Doppler VANESA right 1.17, left 0.97 suggestive of mild atherosclerotic peripheral arterial disease of left leg. Dr. Kellogg inform the patient has seen Dr. Kevin Valero in the past and can follow-up in the office. Continue Plavix 3. Diabetes mellitus type 2, uncontrolled: A1c 7.8. Accu-Chek before meals and at bedtime and cover with NovoLog sliding scale. Blood sugar here is reasonably well controlled. Hold metformin. 4. Hypertension and dyslipidemia, hypothyroidism: Home medication reconciliation done. Lipid profile HDL 32, LDL 31 and triglyceride normal. FT4 1.47, TSH 0.14 suggestive of over dose of levothyroxine. Levothyroxine decreased to 175 mcg daily. DVT prophylaxis: On Lovenox 40 mg subcut daily. Clinical Impression(s) from Imaging Studies Foot X-Ray 03/21/18 11:30 IMPRESSION: Soft tissue swelling overlying the great toe. Lower Extremity MRI 03/21/18 13:34 IMPRESSION: Osteomyelitis of the phalanges of the great toe. Microbiology Past 72 Hours 03/21/18 11:00 Wound - Left Foot Gram Stain - Final 03/21/18 11:00 Wound - Left Foot Wound Culture - Preliminary Mixed Gram Positive Organisms Laboratory Results 03/21/18 14:05: S.aureus Protein A PCR NEGATIVE, MRSA (PCR) Negative 03/21/18 16:41: POC Glucose 167 H 03/21/18 21:48: POC Glucose 164 H 03/22/18 07:36: POC Glucose 157 H 03/22/18 07:46: Triglycerides 169, Cholesterol 97, LDL Cholesterol 31, VLDL Cholesterol 34, HDL Cholesterol 32 L, TSH 0.14 L, Free T4 1.47 H 03/22/18 07:46: Hemoglobin A1c 7.8 H 03/22/18 12:29: POC Glucose 190 H Code Visit Inpatient E&M: 64077 [facility] L3
[2018-03-22 16:55] LABS: Bedside Glucose 165 mg/dL (70-110)
[2018-03-22 20:37] VITALS: BP 136/50; PULSE 78; RESP 16; TEMP 37; O2SAT 97
[2018-03-22] MEDS: Lisinopril 40 MG Tablet PO (21:45)
[2018-03-22] MEDS: Atorvastatin Calcium 40 MG Tablet PO (21:45)
[2018-03-22 21:56] LABS: Bedside Glucose 249 mg/dL (70-110)
[2018-03-22] MEDS: Zolpidem Tartrate 5 MG Tablet PO (23:05)
[2018-03-22] MEDS: oxyCODONE 5 MG Tablet PO (23:05)
[2018-03-23] MEDS: Vancomycin IV 1,000 MG/200 ML BAG 200 MG IV ×2 (01:55→12:36)
[2018-03-23 02:40] VITALS: BP 115/58; PULSE 73; RESP 16; TEMP 37.1; O2SAT 97
[2018-03-23] MEDS: Levothyroxine 175 MCG Tablet PO (05:35)
[2018-03-23] MEDS: oxyCODONE 5 MG Tablet PO (05:35)
[2018-03-23] MEDS: Piperacil/Tazobactam 3.375 GM/50 ML ML IV ×3 (05:35→21:36)
[2018-03-23] MEDS: Insulin Lispro 100 UNIT/ML INSULN.PEN SQ ×4 (07:16→21:43)
[2018-03-23] MEDS: Insulin Lispro 100 UNIT/ML INSULN.PEN 13 UNIT SC ×2 (07:17→11:10)
[2018-03-23 07:25] LABS: Bedside Glucose 213 mg/dL (70-110)
[2018-03-23 08:22] VITALS: BP 127/60; PULSE 77; PULSE 80; RESP 16; TEMP 37.2; O2SAT 96
[2018-03-23] MEDS: Docusate Sodium 100 MG Capsule 200 MG PO (08:33)
[2018-03-23] MEDS: hydroCHLOROthiazide 12.5mg 12.5 MG PO (08:33)
[2018-03-23] MEDS: Clopidogrel Bisulfate 75 MG Tablet PO (08:34)
--- NOTE | 2018-03-23 09:39 | NURSING ---
wound photo: left great toe (plantar surface)
--- NOTE | 2018-03-23 09:40 | NURSING ---
wound photo: left great toe (dorsal surface)
[2018-03-23 11:11] LABS: Bedside Glucose 298 mg/dL (70-110)
--- NOTE | 2018-03-23 11:26 | PCM.PN.ID ---
Patient Problems: Active and Suspected Problems Left great toe plantar ulcer (Acute) Osteomyelitis (Acute) Subjective: Pain improved, no fever, no n/v/d. - Physical Exam General: Alert, Cooperative, No apparent distress Lungs: Clear to auscultation, Normal air movement Cardiovascular: Regular rate, Regular Rhythm Abdomen: Soft, Non Tender, Non-Distended Skin: No rashes, Incision - foot wrapped Vital Signs Temp Pulse Resp BP Pulse Ox 99.0 F 80 16 127/60 H 96 03/23/18 08:22 03/23/18 08:22 03/23/18 08:22 03/23/18 08:22 03/23/18 08:22 Oxygen Delivery Method Room Air Weight: 103.6 kg Body Mass Index (BMI) 32.8 Intake and Output for Last 24 Hours 03/21/18 03/22/18 03/23/18 23:59 23:59 23:59 Intake Total 2108 1073 / 1073 Balance 2108 1073 / 1073 Microbiology Past 72 Hours 03/21/18 11:00 Gram Stain - Final Wound - Left Foot Wound Culture - Preliminary Beta hemolytic organism Gram positive organism Gram positive jaspal POC Glucose 03/23/18 03/23/18 03/22/18 11:03 07:14 21:43 POC Glucose 298 H 213 H 249 H 03/22/18 03/22/18 16:43 12:29 POC Glucose 165 H 190 H Medical Necessity - Tobacco Use Smoking Status: Never smoker Route of nutrition/ use of supplements: [] Nutritional Intake: [] IV Site: [] Shore Catheter: [] - Assessment/Plan Antibiotics: [] Assessment/Plan: [] Active and Suspected Problems Left great toe plantar ulcer (Acute) L 1st toe osteo with DM - s/p bedside debridement 03/[address] Kellogg. Cxs gram pos, beta hemolytic org, and GPR; gram stain showed heavy GPC, GNR, GPR. Will broadly cover with vanc/zosyn for now. Picc to be placed. Will follow
--- NOTE | 2018-03-23 12:24 | PN_ITS ---
Patient Problems: Active and Suspected Problems Left great toe plantar ulcer (Acute) Osteomyelitis (Acute) Subjective: Patient was seen today for follow up on left 1st toe ulceration infection. He relates overall he is doing well, no complaints of fever, chills, nausea or vomiting. He relates he does have pain to the 1st toe, but appears controlled at this time. He has no new complaints. - Physical Exam General: Alert, Oriented x3, Cooperative, No apparent distress Extremities: Capillary Refill Less than 3 Seconds, No Calf Tenderness, - - Left foot: Capillary Refill Less than 3 Seconds, No Calf Tenderness, - - There is noted improvement - appears improvement of cellulitis, ulceration plantar hallux at level of the sub hallux IPJ, margins of ulceration healthy and viable, there is noted granular tissue present - ulcer down to bone and flexor tendon, no str eaking, no visible abscess, no blistering, no crepitus present and no other open ulcerations, no evidence of acute ischemia present. Psych/Mental Status: Normal Affect, Appropriate, Alert and oriented to time, place, person, mood and affect Vital Signs Temp Pulse Resp BP Pulse Ox 99.0 F 80 16 127/60 H 96 03/23/18 08:22 03/23/18 08:22 03/23/18 08:22 03/23/18 08:22 03/23/18 08:22 Oxygen Delivery Method Room Air Weight: 103.6 kg Body Mass Index (BMI) 32.8 Intake and Output for Last 24 Hours 03/21/18 03/22/18 03/23/18 23:59 23:59 23:59 Intake Total 2108 1073 / 1073 Balance 2108 1073 / 1073 Microbiology Past 72 Hours 03/21/18 11:00 Gram Stain - Final Wound - Left Foot Wound Culture - Preliminary Beta hemolytic organism Gram positive organism Gram positive jaspal POC Glucose 03/23/18 03/23/18 03/22/18 11:03 07:14 21:43 POC Glucose 298 H 213 H 249 H 03/22/18 03/22/18 16:43 12:29 POC Glucose 165 H 190 H Medical Necessity - Tobacco Use Smoking Status: Never smoker Assessment/Plan All Active Problems Left great toe plantar ulcer (Acute) Osteomyelitis (Acute) Cellulitis left foot Ulceration down to bone left hallux with osteomyelitis present Diabetic Neuropathy Peripheral arterial disease Eczema dermatitis left and right ankle Continued improvement noted. Patient wants to continue with attempts at salvage of the toe. Continue to follow cultures and continue with antibiotic therapy per ID service. Spoke with Dr. Isreal Valero [facility] follow up with him as outpatient in office in a couple weeks. Continue with local wound care - pack w/ Iodoform with overlying gauze dressing changes - change daily. Advised patient strict nonweightbearing to the ulcer site left foot. Ordered surgical shoe and an offloading insert has been placed to float and offload the ulceration. Recommend home nursing initially for patient once discharged home. Reviewed importance of proper blood sugar control to optimize healing and optimize foot/ankle health. Triamcinolone 0.1% cream for eczema dermatitis bilateral ankle (left worse than right). Podiatry will continue to follow.
--- NOTE | 2018-03-23 12:28 | NURSING ---
farm machinery set up mechanic called and stated she will be here in about 1 hour for PICC insertion.
--- NOTE | 2018-03-23 13:19 | PCM.PN.HOSP ---
Patient Problems: Active and Suspected Problems Left great toe plantar ulcer (Acute) Osteomyelitis (Acute) Subjective: The patient did not had any fever or chills. Left great toe looks better. Redness and swelling has much decreased. Dressing was changed by our wound nurse. Vitals/I&O's: Vital Signs Temp Pulse Resp BP Pulse Ox 99.0 F 80 16 127/60 H 96 03/23/18 08:22 03/23/18 08:22 03/23/18 08:22 03/23/18 08:22 03/23/18 08:22 Oxygen Delivery Method Room Air Weight: 228 lb 6.382 oz Body Mass Index (BMI) 32.8 Intake and Output for Last 24 Hours 03/21/18 03/22/18 03/23/18 23:59 23:59 23:59 Intake Total 2108 Balance 2108 General: Alert, Oriented x3, Cooperative HEENT: Atraumatic, PERRLA, EOMI, Normocephalic Neck: Supple, No JVD, Negative Carotid Bruits Lungs: Clear to auscultation, Normal air movement Cardiovascular: Regular rate, Regular Rhythm, Normal S1, Normal S2, No murmurs Abdomen: Bowel Sounds Present, Soft, Non Tender, Non-Distended Extremities: No edema, Capillary Refill Less than 3 Seconds Skin: Ulcer/ Wound - Left great toe erythema, induration and swelling has improved. Erythema and swelling has decreased in size as compared to original marking. Ulcer over the plantar aspect of left great toe looks clean surface and deep. No slough., Rash Present Musculoskeletal: No Tenderness to Palpation of Joints or Extremities, Arthritic Changes Neurological: Cranial nerves II-XII grossly intact Psych/Mental Status: Normal Affect, Appropriate Microbiology Past 72 Hours 03/21/18 11:00 Wound - Left Foot Gram Stain - Final 03/21/18 11:00 Wound - Left Foot Wound Culture - Preliminary Beta hemolytic organism Gram positive organism Gram positive jaspal Laboratory Results 03/22/18 16:43: POC Glucose 165 H 03/22/18 21:43: POC Glucose 249 H 03/23/18 07:14: POC Glucose 213 H 03/23/18 11:03: POC Glucose 298 H Current Medications Acetaminophen (Tylenol) 650 mg PO Q6H PRN PRN PRN Reason: Mild Pain (scale 0-3)/T>100.7 Al Hydroxide/Mg Hydroxide (Mylanta Ii) 30 ml PO Q6H PRN PRN PRN Reason: Gastric Burning Atorvastatin Calcium (Lipitor) 40 mg PO QHS [facility] Last Admin: 03/22/18 21:45 Dose: 40 mg Betamethasone Valerate (Valisone 0.1% Cream) 1 applic TOPICAL BID [facility]; Protocol Last Admin: 03/23/18 08:34 Dose: 1 applicatio Bisacodyl (Dulcolax) 10 mg RECTAL DAILY PRN PRN PRN Reason: Constipation Clopidogrel Bisulfate (Plavix) 75 mg PO DAILY [facility] Last Admin: 03/23/18 08:34 Dose: 75 mg Dextrose (D50w Syringe) 0 gm IV X1 PRN; Protocol PRN Reason: Hypoglycemia Docusate Sodium (Colace) 200 mg PO BID PRN PRN PRN Reason: Constipation Last Admin: 03/23/18 08:33 Dose: 200 mg Glucagon () 1 mg IM .X1 PRN PRN Reason: Hypoglycemia Hydrochlorothiazide (Hydrochlorothiazide) 12.5 mg PO DAILY [facility] Last Admin: 03/23/18 08:33 Dose: 12.5 mg Piperacillin Sod/Tazobactam Sod (Zosyn) 3.375 gm in 50 mls @ 12.5 mls/hr IV Q8 [facility] Last Admin: 03/23/18 05:35 Dose: 12.5 mls/hr Vancomycin IV Pharmacy to Dose (1 ea/ Sodium Chloride) 500 mls @ 250 mls/hr IV X1 PRN; Protocol PRN Reason: Rx to Dose Vancomycin HCl (Vancomycin) 1,000 mg in 200 mls @ 200 mls/hr IV Q12H [facility] Last Admin: 03/23/18 12:36 Dose: 200 mls/hr Insulin Glargine (Lantus (Bkc)) 45 units SC DAILY [facility] Last Admin: 03/23/18 08:34 Dose: 45 u Insulin Human Lispro (Humalog Kwikpen (Bkc)) 0 unit SQ ACHS [facility]; Protocol Last Admin: 03/23/18 11:09 Dose: 4 units Insulin Human Lispro (Humalog Kwikpen (Bkc)) 13 unit SC TIDCM [facility] Last Admin: 03/23/18 11:10 Dose: 13 units Levothyroxine Sodium (Synthroid) 175 mcg PO DAILY@0600 [facility] Last Admin: 03/23/18 05:35 Dose: 175 mcg Lisinopril (Zestril) 40 mg PO QHS [facility] Last Admin: 03/22/18 21:45 Dose: 40 mg Morphine Sulfate () 1 - 2 mg IV Q4H PRN PRN PRN Reason: SEVERE PAIN (6-10/10) Last Admin: 03/22/18 07:02 Dose: 2 mg Ondansetron HCl (Zofran) 4 mg IV Q8H PRN PRN PRN Reason: Nausea Oxycodone HCl (Oxyir) 5 mg PO Q4H PRN PRN PRN Reason: Moderate Pain (pain scale 4-5) Last Admin: 03/23/18 05:35 Dose: 5 mg Sodium Chloride () 5 - 30 ml IV UD PRN PRN Reason: SALINE FLUSH Last Admin: 03/22/18 07:03 Dose: 10 ml Zolpidem Tartrate (Ambien (Generic)) 5 mg PO QHS PRN PRN PRN Reason: INSOMNIA Last Admin: 03/22/18 23:05 Dose: 5 mg Medical Necessity - Tobacco Use Smoking Status: Never smoker Assessment/Plan All Active Problems Left great toe plantar ulcer (Acute) Osteomyelitis (Acute) The patient is a 67 year old M with history of diabetes mellitus type 2, hypertension came to ER with left great toe being red and swollen along with fever at home today. Patient has chronic left great toe ulcer for about 1-2 months and progressively getting worse. He was seen by PCP Dr. Malik Valero iii and was referred to wound care 3 times but unfortunately lost his referral paper and could not get access to wound center until next Tuesday. He also has redness over left lower leg near ankle and he was seen in urgent center and was given cream. Per the patient it is getting better. ]Initial basic lab work done in the ER is unremarkable except BUN 23, creatinine 1.37. Serum glucose in BMP 167. Per patient, blood sugar at home stays between 100 -150 mg percent Patient is further admitted for IV antibiotics, podiatry consult and management of ulcer 1. Left great toe, both proximal and distal phalanges osteomyelitis , diabetic ulcer: Patient is being admitted on MedSur floor. Patient had IV vancomycin and Zosyn in the ER. CRP 75. wound prelim Gram stain shows mixed gram-positive cocci, gram-negative rods, gram-positive rods. Full wound culture report is pending. The patient was seen by ID and recommended to continue IV vancomycin and Zosyn. MRI left foot shows osteomyelitis of both proximal and distal phalanges of left great toe. Patient elected conservative antibiotic management over left great toe amputation and Dr. Kellogg will follow up after 3 weeks of IV antibiotics to see the response. PICC line ordered. Patient will need long-term, about 4-6 weeks IV antibiotics depending upon wound culture and further antibiotic response. 2. Left lower leg peripheral arterial disease: left posterior tibial and dorsal pedis artery are diminished in volume as compared to right. Lower extremity arterial Doppler VANESA right 1.17, left 0.97 suggestive of mild atherosclerotic peripheral arterial disease of left leg. Dr. Kellogg inform the patient has seen Dr. Kevin Valero in the past and can follow-up in the office. Continue Plavix 3. Diabetes mellitus type 2, uncontrolled: A1c 7.8. Blood sugar was high in the range of 213-298. Lantus dose and Humalog insulin increased. Accu-Chek before meals and at bedtime and cover with Humalog sliding scale. Hold metformin. 4. hypothyroidism: FT4 1.47, TSH 0.14 suggestive of over dose of levothyroxine. Levothyroxine decreased to 175 mcg daily. 5 Hypertension blood pressure is controlled. dyslipidemia : Lipid profile HDL 32, LDL 31 and triglyceride normal. Home medication reconciliation done. DVT prophylaxis: On Lovenox 40 mg subcut daily. Discharge plan: After wound culture is fully reported, antibiotic will be is selected as per ID recommendation and patient will be sent home on IV antibiotics. Clinical Impression(s) from Imaging Studies Foot X-Ray 03/21/18 11:30 IMPRESSION: Soft tissue swelling overlying the great toe. Lower Extremity MRI 03/21/18 13:34 IMPRESSION: Osteomyelitis of the phalanges of the great toe. Microbiology Past 72 Hours 03/21/18 11:00 Wound - Left Foot Gram Stain - Final 03/21/18 11:00 Wound - Left Foot Wound Culture - Preliminary Mixed Gram Positive Organisms Laboratory Results 03/21/18 14:05: S.aureus Protein A PCR NEGATIVE, MRSA (PCR) Negative 03/21/18 16:41: POC Glucose 167 H 10/16/18 21:48: POC Glucose 164 H 03/22/18 07:36: POC Glucose 157 H 03/22/18 07:46: Triglycerides 169, Cholesterol 97, LDL Cholesterol 31, VLDL Cholesterol 34, HDL Cholesterol 32 L, TSH 0.14 L, Free T4 1.47 H 03/22/18 07:46: Hemoglobin A1c 7.8 H 03/22/18 12:29: POC Glucose 190 H Code Visit Inpatient E&M: 60825 [facility] L3
--- NOTE | 2018-03-23 13:32 | PN_ITS ---
Patient Problems: Active and Suspected Problems Left great toe plantar ulcer (Acute) Osteomyelitis (Acute) Subjective: The patient did not had any fever or chills. Left great toe looks better. Redness and swelling has much decreased. Dressing was changed by our wound nurse. Vitals/I&O's: Vital Signs Temp Pulse Resp BP Pulse Ox 99.0 F 80 16 127/60 H 96 03/23/18 08:22 03/23/18 08:22 03/23/18 08:22 03/23/18 08:22 03/23/18 08:22 Oxygen Delivery Method Room Air Weight: 228 lb 6.382 oz Body Mass Index (BMI) 32.8 Intake and Output for Last 24 Hours 03/21/18 03/22/18 03/23/18 23:59 23:59 23:59 Intake Total 2108 Balance 2108 General: Alert, Oriented x3, Cooperative HEENT: Atraumatic, PERRLA, EOMI, Normocephalic Neck: Supple, No JVD, Negative Carotid Bruits Lungs: Clear to auscultation, Normal air movement Cardiovascular: Regular rate, Regular Rhythm, Normal S1, Normal S2, No murmurs Abdomen: Bowel Sounds Present, Soft, Non Tender, Non-Distended Extremities: No edema, Capillary Refill Less than 3 Seconds Skin: Ulcer/ Wound - Left great toe erythema, induration and swelling has improved. Erythema and swelling has decreased in size as compared to original marking. Ulcer over the plantar aspect of left great toe looks clean surface and deep. No slough., Rash Present Musculoskeletal: No Tenderness to Palpation of Joints or Extremities, Arthritic Changes Neurological: Cranial nerves II-XII grossly intact Psych/Mental Status: Normal Affect, Appropriate Microbiology Past 72 Hours 03/21/18 11:00 Wound - Left Foot Gram Stain - Final 03/21/18 11:00 Wound - Left Foot Wound Culture - Preliminary Beta hemolytic organism Gram positive organism Gram positive jaspal Laboratory Results 03/22/18 16:43: POC Glucose 165 H 03/22/18 21:43: POC Glucose 249 H 03/23/18 07:14: POC Glucose 213 H 03/23/18 11:03: POC Glucose 298 H Current Medications Acetaminophen (Tylenol) 650 mg PO Q6H PRN PRN PRN Reason: Mild Pain (scale 0-3)/T>100.7 Al Hydroxide/Mg Hydroxide (Mylanta Ii) 30 ml PO Q6H PRN PRN PRN Reason: Gastric Burning Atorvastatin Calcium (Lipitor) 40 mg PO QHS [facility] Last Admin: 03/22/18 21:45 Dose: 40 mg Betamethasone Valerate (Valisone 0.1% Cream) 1 applic TOPICAL BID [facility]; Protocol Last Admin: 03/23/18 08:34 Dose: 1 applicatio Bisacodyl (Dulcolax) 10 mg RECTAL DAILY PRN PRN PRN Reason: Constipation Clopidogrel Bisulfate (Plavix) 75 mg PO DAILY [facility] Last Admin: 03/23/18 08:34 Dose: 75 mg Dextrose (D50w Syringe) 0 gm IV X1 PRN; Protocol PRN Reason: Hypoglycemia Docusate Sodium (Colace) 200 mg PO BID PRN PRN PRN Reason: Constipation Last Admin: 03/23/18 08:33 Dose: 200 mg Glucagon () 1 mg IM .X1 PRN PRN Reason: Hypoglycemia Hydrochlorothiazide (Hydrochlorothiazide) 12.5 mg PO DAILY [facility] Last Admin: 03/23/18 08:33 Dose: 12.5 mg Piperacillin Sod/Tazobactam Sod (Zosyn) 3.375 gm in 50 mls @ 12.5 mls/hr IV Q8 [facility] Last Admin: 03/23/18 05:35 Dose: 12.5 mls/hr Vancomycin IV Pharmacy to Dose (1 ea/ Sodium Chloride) 500 mls @ 250 mls/hr IV X1 PRN; Protocol PRN Reason: Rx to Dose Vancomycin HCl (Vancomycin) 1,000 mg in 200 mls @ 200 mls/hr IV Q12H [facility] Last Admin: 03/23/18 12:36 Dose: 200 mls/hr Insulin Glargine (Lantus (Bkc)) 45 units SC DAILY [facility] Last Admin: 03/23/18 08:34 Dose: 45 u Insulin Human Lispro (Humalog Kwikpen (Bkc)) 0 unit SQ ACHS [facility]; Protocol Last Admin: 03/23/18 11:09 Dose: 4 units Insulin Human Lispro (Humalog Kwikpen (Bkc)) 13 unit SC TIDCM [facility] Last Admin: 03/23/18 11:10 Dose: 13 units Levothyroxine Sodium (Synthroid) 175 mcg PO DAILY@0600 [facility] Last Admin: 03/23/18 05:35 Dose: 175 mcg Lisinopril (Zestril) 40 mg PO QHS [facility] Last Admin: 03/22/18 21:45 Dose: 40 mg Morphine Sulfate () 1 - 2 mg IV Q4H PRN PRN PRN Reason: SEVERE PAIN (6-10/10) Last Admin: 03/22/18 07:02 Dose: 2 mg Ondansetron HCl (Zofran) 4 mg IV Q8H PRN PRN PRN Reason: Nausea Oxycodone HCl (Oxyir) 5 mg PO Q4H PRN PRN PRN Reason: Moderate Pain (pain scale 4-5) Last Admin: 03/23/18 05:35 Dose: 5 mg Sodium Chloride () 5 - 30 ml IV UD PRN PRN Reason: SALINE FLUSH Last Admin: 03/22/18 07:03 Dose: 10 ml Zolpidem Tartrate (Ambien (Generic)) 5 mg PO QHS PRN PRN PRN Reason: INSOMNIA Last Admin: 03/22/18 23:05 Dose: 5 mg Medical Necessity - Tobacco Use Smoking Status: Never smoker Assessment/Plan All Active Problems Left great toe plantar ulcer (Acute) Osteomyelitis (Acute) The patient is a 67 year old M with history of diabetes mellitus type 2, hypertension came to ER with left great toe being red and swollen along with fever at home today. Patient has chronic left great toe ulcer for about 1-2 months and progressively getting worse. He was seen by PCP Dr. Malik Valero iii and was referred to wound care 3 times but unfortunately lost his referral paper and could not get access to wound center until next Tuesday. He also has redness over left lower leg near ankle and he was seen in urgent center and was given cream. Per the patient it is getting better. ]Initial basic lab work done in the ER is unremarkable except BUN 23, creatinine 1.37. Serum glucose in BMP 167. Per patient, blood sugar at home stays between 100 -150 mg percent Patient is further admitted for IV antibiotics, podiatry consult and management of ulcer 1. Left great toe, both proximal and distal phalanges osteomyelitis , diabetic ulcer: Patient is being admitted on [facility] floor. Patient had IV vancomycin and Zosyn in the ER. CRP 75. wound prelim Gram stain shows mixed gram-positive cocci, gram-negative rods, gram-positive rods. Full wound culture report is pending. The patient was seen by ID and recommended to continue IV vancomycin and Zosyn. MRI left foot shows osteomyelitis of both proximal and distal phalanges of left great toe. Patient elected conservative antibiotic management over left great toe amputation and Dr. Kellogg will follow up after 3 weeks of IV antibiotics to see the response. PICC line ordered. Patient will need long- term, about 4-6 weeks IV antibiotics depending upon wound culture and further antibiotic response. 2. Left lower leg peripheral arterial disease: left posterior tibial and dorsal pedis artery are diminished in volume as compared to right. Lower extremity arterial Doppler VANESA right 1.17, left 0.97 suggestive of mild atherosclerotic peripheral arterial disease of left leg. Dr. Kellogg inform the patient has seen Dr. Kevin Valero in the past and can follow-up in the office. Continue Plavix 3. Diabetes mellitus type 2, uncontrolled: A1c 7.8. Blood sugar was high in the range of 213-298. Lantus dose and Humalog insulin increased. Accu-Chek before meals and at bedtime and cover with Humalog sliding scale. Hold metformin. 4. hypothyroidism: FT4 1.47, TSH 0.14 suggestive of over dose of levothyroxine. Levothyroxine decreased to 175 mcg daily. 5 Hypertension blood pressure is controlled. dyslipidemia : Lipid profile HDL 32, LDL 31 and triglyceride normal. Home medication reconciliation done. DVT prophylaxis: On Lovenox 40 mg subcut daily. Discharge plan: After wound culture is fully reported, antibiotic will be is selected as per ID recommendation and patient will be sent home on IV antibiotics. Clinical Impression(s) from Imaging Studies Foot X-Ray 03/21/18 11:30 IMPRESSION: Soft tissue swelling overlying the great toe. Lower Extremity MRI 03/21/18 13:34 IMPRESSION: Osteomyelitis of the phalanges of the great toe. Microbiology Past 72 Hours 03/21/18 11:00 Wound - Left Foot Gram Stain - Final 03/21/18 11:00 Wound - Left Foot Wound Culture - Preliminary Mixed Gram Positive Organisms Laboratory Results 03/21/18 14:05: S.aureus Protein A PCR NEGATIVE, MRSA (PCR) Negative 03/21/18 16:41: POC Glucose 167 H 10/16/18 21:48: POC Glucose 164 H 03/22/18 07:36: POC Glucose 157 H 03/22/18 07:46: Triglycerides 169, Cholesterol 97, LDL Cholesterol 31, VLDL Cholesterol 34, HDL Cholesterol 32 L, TSH 0.14 L, Free T4 1.47 H 03/22/18 07:46: Hemoglobin A1c 7.8 H 03/22/18 12:29: POC Glucose 190 H Code Visit Inpatient E&M: 71091 Subs Hosp L3
[2018-03-23 14:01] VITALS: BP 135/61; PULSE 76; RESP 18; TEMP 37.1; O2SAT 97
[2018-03-23] MEDS: Insulin Lispro 100 UNIT/ML INSULN.PEN 17 UNIT SC (17:02)
[2018-03-23 17:16] LABS: Bedside Glucose 178 mg/dL (70-110)
[2018-03-23 21:29] VITALS: BP 146/53; PULSE 80; RESP 16; TEMP 36.9; O2SAT 97
[2018-03-23] MEDS: Lisinopril 40 MG Tablet PO (21:39)
[2018-03-23] MEDS: Atorvastatin Calcium 40 MG Tablet PO (21:39)
[2018-03-23 21:55] LABS: Bedside Glucose 156 mg/dL (70-110)
[2018-03-24 00:17] LABS: Vancomycin, Trough Level 15.9 ug/mL (5.0-15.0)
--- NOTE | 2018-03-24 00:43 | PCM.RX.CS ---
Consult Pharmacy has been consulted to manage selected antiobiotic: Vancomycin Type of Consult: Follow-up Suspected Infection: Osteomyelitis Prior Doses of Antibiotics Received/Current Regimen: Medications Vancomycin HCl (Vancomycin) 1,000 mg in 200 mls @ 200 mls/hr IV Q12H [facility] Last Admin: 03/23/18 12:36 Dose: 200 mls/hr Labs: Sodium 137 mmol/L (136-145) 03/21/18 11:05 Potassium 4.1 mmol/L (3.5-5.1) 03/21/18 11:05 Chloride 100 mmol/L (98-107) 03/21/18 11:05 Carbon Dioxide 27.0 mmol/L (21.0-32.0) 03/21/18 11:05 Anion Gap 10 (5-15) 03/21/18 11:05 BUN 23 mg/dL (7-18) H 03/21/18 11:05 Creatinine 1.37 mg/dL (0.70-1.30) H 03/21/18 11:05 Est GFR (MDRD) Af Amer 67 mL/min (>60) 03/21/18 11:05 Est GFR (MDRD) Non-Af 55 mL/min (>60) L 03/21/18 11:05 BUN/Creatinine Ratio 16.8 RATIO (10-20) 03/21/18 11:05 Glucose 167 mg/dL (74-106) H 03/21/18 11:05 Vancomycin Trough 15.9 ug/mL (5.0-15.0) H 03/23/18 23:26 Microbiology: Microbiology 03/21/18 11:05 Blood Culture (Wb) - Anticubital Left Blood Culture - Preliminary No growth in 48 hours. 03/21/18 11:00 Wound - Left Foot Gram Stain - Final 03/21/18 11:00 Wound - Left Foot Wound Culture - Preliminary Beta hemolytic organism Gram positive organism Gram positive jaspal Weight used for dosin.6 kg Estimated Creatinine Clearance: 55 Goal Trough: 15-20 mcg/mL Pharmacy Plan for Drug Dosing: Trough (15.9) was within target range of 15-20. Will continue same dose of 1000mg q12hrs and re-draw trough in 4 days. Pharmacy Service will continue to monitor and adjust dosing as required. Follow-Up Labs: Trough Vancomycin Labs to be done on [date and time ordered]: 03/27/18 @8639
[2018-03-24] MEDS: Vancomycin IV 1,000 MG/200 ML BAG 200 MG IV ×2 (02:16→11:55)
[2018-03-24 02:18] VITALS: BP 141/70; PULSE 71; RESP 16; TEMP 36.9; O2SAT 96
[2018-03-24 05:58] LABS: Absolute Lymphocyte Count 2.48 X10^3/ul (0.83-4.51); Absolute Neutrophil Count 4.7 X10^3/uL (2.0-7.7); Basophil# 0.05 X10^3/uL; Basophil% 0.6 % (0-1); Eosinophil# 0.37 X10^3/uL; Eosinophils% 4.4 % (0-5); Hematocrit 35.3 % (40-54); Hemoglobin 11.6 g/dl (13.0-16.5); Lymphocyte # 2.48 X10^3/ul (4.0); Lymphocyte % 29.2 % (19-41); Mean Corp Hgb Conc 32.9 g/gl (32-36); Mean Corpuscular Hgb 28.6 pg (27.0-32.0); Mean Corpuscular Volume 87.2 fL (80-94); Mean Platelet Vol. 9.7 fl (6.2-12.0); Monocyte# 0.89 X10^3/uL; Monocyte% 10.5 % (0-10); Neutrophil # 4.69 X10^3/uL (2.7-7.7); Neutrophil % 55.1 % (47-70); Platelet Count 357 K/mm3 (150-450); RBC Distribution Width CV 12.4 % (11.6-14.6); RBC Distribution Width SD 38.9 fl (35.1-43.9); Red Blood Count 4.05 M/mm3 (4.6-6.2); White Blood Count 8.5 K/mm3 (4.4-11.0)
[2018-03-24 05:59] LABS: POSITIVE COUNT NO; POSITIVE DIFFERENTIAL NO; POSITIVE MORPHOLOGY NO
[2018-03-24] MEDS: Piperacil/Tazobactam 3.375 GM/50 ML ML IV (06:05)
[2018-03-24] MEDS: 0.9% NaCl Peripheral Flush Adult/Peds IV (06:05)
[2018-03-24] MEDS: Levothyroxine 175 MCG Tablet PO (06:05)
[2018-03-24 06:20] LABS: Anion Gap 8 (5-15); BUN 21 mg/dL (7-18); BUN/Creat Ratio 15.1 RATIO (10-20); Calcium,Total 8.7 mg/dL (8.5-10.1); Chloride 102 mmol/L (98-107); Creatinine, Serum 1.39 mg/dL (0.70-1.30); EST Glomerular Filtration Rate 54 mL/min (>60); Est Glom Filt Rate - Afr Amer 66 mL/min (>60); Estimated Creatinine Clearance 53.98 ml/min; Glucose 138 mg/dL (74-106); Potassium 4.1 mmol/L (3.5-5.1); Sodium Level 137 mmol/L (136-145)
[2018-03-24] MEDS: Insulin Lispro 100 UNIT/ML INSULN.PEN SQ ×2 (07:46→11:54)
[2018-03-24] MEDS: Insulin Lispro 100 UNIT/ML INSULN.PEN 17 UNIT SC ×2 (07:46→11:54)
[2018-03-24 07:55] LABS: Bedside Glucose 166 mg/dL (70-110)
[2018-03-24 08:30] VITALS: BP 138/67; PULSE 83; RESP 18; TEMP 36.6; O2SAT 93
[2018-03-24] MEDS: hydroCHLOROthiazide 12.5mg 12.5 MG PO (08:30)
[2018-03-24] MEDS: Clopidogrel Bisulfate 75 MG Tablet PO (08:30)
--- NOTE | 2018-03-24 10:12 | PCM.PN.HOSP ---
Patient Problems: Active and Suspected Problems Left great toe plantar ulcer (Acute) Osteomyelitis (Acute) Subjective: Feels much better and toes seems better by report. Would like to go home. Vitals/I&O's: Vital Signs Temp Pulse Resp BP Pulse Ox 97.9 F 83 18 138/67 H 93 03/24/18 08:30 03/24/18 08:30 03/24/18 08:30 03/24/18 08:30 03/24/18 08:30 Oxygen Delivery Method Room Air Weight: 228 lb 6.382 oz Body Mass Index (BMI) 32.8 Intake and Output for Last 24 Hours 03/22/18 03/23/18 03/24/18 23:59 23:59 23:59 Intake Total 1985 539 / 539 Balance 1985 539 / 539 General: Alert, Oriented x3, Cooperative, No apparent distress HEENT: Atraumatic, EOMI, Normocephalic Oral: Moist Mucosa Neck: Supple, No JVD Lungs: Clear to auscultation, Normal air movement, No rhonchi, No wheeze, No rales Cardiovascular: Regular rate, Regular Rhythm, Normal S1, Normal S2, No murmurs Abdomen: Soft, Non Tender, Non-Distended, No Hepato-splenomegaly Extremities: No edema, Capillary Refill Less than 3 Seconds Skin: - - Toe was not examined as it was recently dressed by wound care nurse, pictures reviewed Neurological: Neuro grossly intact, Sensory exam intact to light touch and pain Psych/Mental Status: Normal Affect, Appropriate Microbiology Past 72 Hours 03/21/18 11:00 Wound - Left Foot Gram Stain - Final 03/21/18 11:00 Wound - Left Foot Wound Culture - Final Streptococcus group G Staphylococcus haemolyticus Eggerthia catenaformis 03/21/18 11:05 Blood Culture (Wb) - Anticubital Left Blood Culture - Preliminary No growth in 48 hours. Laboratory Results 03/23/18 11:03: POC Glucose 298 H 03/23/18 17:00: POC Glucose 178 H 03/23/18 21:34: POC Glucose 156 H 03/23/18 23:26: Vancomycin Trough 15.9 H 03/24/18 05:38: WBC 8.5, RBC 4.05 L, Hgb 11.6 L, Hct 35.3 L, MCV 87.2, MCH 28.6, MCHC 32.9, RDW 12.4, RDW Differential 38.9, Plt Count 357, MPV 9.7, Immature Gran % (Auto) 0.200, Neut % (Auto) 55.1, Lymph % (Auto) 29.2, [place] % (Auto) 10.5 H, Eos % (Auto) 4.4, Baso % (Auto) 0.6, Absolute Neuts (auto) 4.7, Absolute Lymphs (auto) 2.48, Total Counted Not Reportable 03/24/18 05:38: Sodium 137, Potassium 4.1, Chloride 102, Carbon Dioxide 27.0, Anion Gap 8, BUN 21 H, Creatinine 1.39 H, Estim Creat Clear Calc 53.98, Est GFR (MDRD) Af Amer 66, Est GFR (MDRD) Non-Af 54 L, BUN/Creatinine Ratio 15.1, Glucose 138 H, Calcium 8.7 03/24/18 07:45: POC Glucose 166 H Current Medications Acetaminophen (Tylenol) 650 mg PO Q6H PRN PRN PRN Reason: Mild Pain (scale 0-3)/T>100.7 Al Hydroxide/Mg Hydroxide (Mylanta Ii) 30 ml PO Q6H PRN PRN PRN Reason: Gastric Burning Atorvastatin Calcium (Lipitor) 40 mg PO QHS [facility] BEDS AT [facility] Last Admin: 03/23/18 21:39 Dose: 40 mg Betamethasone Valerate (Valisone 0.1% Cream) 1 applic TOPICAL BID [facility]S [facility]; Protocol Last Admin: 03/24/18 08:31 Dose: 1 applicatio Bisacodyl (Dulcolax) 10 mg RECTAL DAILY PRN PRN PRN Reason: Constipation Clopidogrel Bisulfate (Plavix) 75 mg PO DAILY [facility] 234 B[facility]S AT [facility] Last Admin: 03/24/18 08:30 Dose: 75 mg Dextrose (D50w Syringe) 0 gm IV X1 PRN; Protocol PRN Reason: Hypoglycemia Docusate Sodium (Colace) 200 mg PO BID PRN PRN PRN Reason: Constipation Last Admin: 03/23/18 08:33 Dose: 200 mg Glucagon () 1 mg IM .X1 PRN PRN Reason: Hypoglycemia Hydrochlorothiazide (Hydrochlorothiazide) 12.5 mg PO DAILY [facility] 234 BEDS AT [facility] Last Admin: 03/24/18 08:30 Dose: 12.5 mg Piperacillin Sod/Tazobactam Sod (Zosyn) 3.375 gm in 50 mls @ 12.5 mls/hr IV Q8 [facility] Last Admin: 03/24/18 06:05 Dose: 12.5 mls/hr Vancomycin IV Pharmacy to Dose (1 ea/ Sodium Chloride) 500 mls @ 250 mls/hr IV X1 PRN; Protocol PRN Reason: Rx to Dose Vancomycin HCl (Vancomycin) 1,000 mg in 200 mls @ 200 mls/hr IV Q12H [facility] 234 B[facility]S [facility] Last Admin: 03/24/18 02:16 Dose: 200 mls/hr Insulin Glargine (Lantus (Bkc)) 50 units SC DAILY [facility] 234 BEDS AT [facility] Last Admin: 03/24/18 07:47 Dose: 50 units Insulin Human Lispro (Humalog Kwikpen (Bkc)) 17 unit SC TIDCM [facility] 234 BEDS AT [facility] Last Admin: 03/24/18 07:46 Dose: 17 units Insulin Human Lispro (Humalog Kwikpen (Bkc)) 0 unit SQ ACHS [facility]; Protocol Last Admin: 03/24/18 07:46 Dose: 2 units Levothyroxine Sodium (Synthroid) 175 mcg PO DAILY@0600 [facility] 234 BEDS AT [facility] Last Admin: 03/24/18 06:05 Dose: 175 mcg Lisinopril (Zestril) 40 mg PO QHS [facility] 234 BEDS AT [facility] Last Admin: 03/23/18 21:39 Dose: 40 mg Morphine Sulfate () 1 - 2 mg IV Q4H PRN PRN PRN Reason: SEVERE PAIN (6-10/10) Last Admin: 03/22/18 07:02 Dose: 2 mg Ondansetron HCl (Zofran) 4 mg IV Q8H PRN PRN PRN Reason: Nausea Oxycodone HCl (Oxyir) 5 mg PO Q4H PRN PRN PRN Reason: Moderate Pain (pain scale 4-5) Last Admin: 03/23/18 05:35 Dose: 5 mg Sodium Chloride () 5 - 30 ml IV UD PRN PRN Reason: SALINE FLUSH Last Admin: 03/24/18 06:05 Dose: 30 ml Zolpidem Tartrate (Ambien (Generic)) 5 mg PO QHS PRN PRN PRN Reason: INSOMNIA Last Admin: 03/22/18 23:05 Dose: 5 mg Medical Necessity - Tobacco Use Smoking Status: Never smoker Assessment/Plan All Active Problems Left great toe plantar ulcer (Acute) Osteomyelitis (Acute) 1. Left great toe osteo secondary to DM ulcer/DM2 - IV abx with PICC line placed - C/s to ID appreciate recs - S. haemolytica and group G strep are growing, will await ID recommendations for Abx on DC - f/w with podiatry in 3 weeks to assess improvement on abx - Home health arranged - SSI and lantus, resume metformin on DC 2. Left PAD/HTN/HLD - Left VANESA is 0.97 no surgical intervention - Medical management at this time - c/w plavix - C/w home BP and lipid medications 3. hypothyroidism - FT4 1.47, TSH 0.14 - Levothyroxine decreased to 175 mcg daily. DVT: Lovenox Diet: DM Code Visit Inpatient E&M: 52957 Subs Hosp L2
--- NOTE | 2018-03-24 10:29 | PN_ITS ---
Patient Problems: Active and Suspected Problems Left great toe plantar ulcer (Acute) Osteomyelitis (Acute) Subjective: Feels much better and toes seems better by report. Would like to go home. Vitals/I&O's: Vital Signs Temp Pulse Resp BP Pulse Ox 97.9 F 83 18 138/67 H 93 03/24/18 08:30 03/24/18 08:30 03/24/18 08:30 03/24/18 08:30 03/24/18 08:30 Oxygen Delivery Method Room Air Weight: 228 lb 6.382 oz Body Mass Index (BMI) 32.8 Intake and Output for Last 24 Hours 03/22/18 03/23/18 03/24/18 23:59 23:59 23:59 Intake Total 1985 539 / 539 Balance 1985 539 / 539 General: Alert, Oriented x3, Cooperative, No apparent distress HEENT: Atraumatic, EOMI, Normocephalic Oral: Moist Mucosa Neck: Supple, No JVD Lungs: Clear to auscultation, Normal air movement, No rhonchi, No wheeze, No rales Cardiovascular: Regular rate, Regular Rhythm, Normal S1, Normal S2, No murmurs Abdomen: Soft, Non Tender, Non-Distended, No Hepato-splenomegaly Extremities: No edema, Capillary Refill Less than 3 Seconds Skin: - - Toe was not examined as it was recently dressed by wound care nurse, pictures reviewed Neurological: Neuro grossly intact, Sensory exam intact to light touch and pain Psych/Mental Status: Normal Affect, Appropriate Microbiology Past 72 Hours 03/21/18 11:00 Wound - Left Foot Gram Stain - Final 03/21/18 11:00 Wound - Left Foot Wound Culture - Final Streptococcus group G Staphylococcus haemolyticus Eggerthia catenaformis 03/21/18 11:05 Blood Culture (Wb) - Anticubital Left Blood Culture - Preliminary No growth in 48 hours. Laboratory Results 03/23/18 11:03: POC Glucose 298 H 03/23/18 17:00: POC Glucose 178 H 03/23/18 21:34: POC Glucose 156 H 03/23/18 23:26: Vancomycin Trough 15.9 H 03/24/18 05:38: WBC 8.5, RBC 4.05 L, Hgb 11.6 L, Hct 35.3 L, MCV 87.2, MCH 28.6, MCHC 32.9, RDW 12.4, RDW Differential 38.9, Plt Count 357, MPV 9.7, Immature Gran % (Auto) 0.200, Neut % (Auto) 55.1, Lymph % (Auto) 29.2, [place] % (Auto) 10.5 H, Eos % (Auto) 4.4, Baso % (Auto) 0.6, Absolute Neuts (auto) 4.7, Absolute Lymphs (auto) 2.48, Total Counted Not Reportable 03/24/18 05:38: Sodium 137, Potassium 4.1, Chloride 102, Carbon Dioxide 27.0, Anion Gap 8, BUN 21 H, Creatinine 1.39 H, Estim Creat Clear Calc 53.98, Est GFR (MDRD) Af Amer 66, Est GFR (MDRD) Non-Af 54 L, BUN/Creatinine Ratio 15.1, Glucose 138 H, Calcium 8.7 03/24/18 07:45: POC Glucose 166 H Current Medications Acetaminophen (Tylenol) 650 mg PO Q6H PRN PRN PRN Reason: Mild Pain (scale 0-3)/T>100.7 Al Hydroxide/Mg Hydroxide (Mylanta Ii) 30 ml PO Q6H PRN PRN PRN Reason: Gastric Burning Atorvastatin Calcium (Lipitor) 40 mg PO QHS [facility] Last Admin: 03/23/18 21:39 Dose: 40 mg Betamethasone Valerate (Valisone 0.1% Cream) 1 applic TOPICAL BID [facility]; Protocol Last Admin: 03/24/18 08:31 Dose: 1 applicatio Bisacodyl (Dulcolax) 10 mg RECTAL DAILY PRN PRN PRN Reason: Constipation Clopidogrel Bisulfate (Plavix) 75 mg PO DAILY [facility] Last Admin: 03/24/18 08:30 Dose: 75 mg Dextrose (D50w Syringe) 0 gm IV X1 PRN; Protocol PRN Reason: Hypoglycemia Docusate Sodium (Colace) 200 mg PO BID PRN PRN PRN Reason: Constipation Last Admin: 03/23/18 08:33 Dose: 200 mg Glucagon () 1 mg IM .X1 PRN PRN Reason: Hypoglycemia Hydrochlorothiazide (Hydrochlorothiazide) 12.5 mg PO DAILY [facility] Last Admin: 03/24/18 08:30 Dose: 12.5 mg Piperacillin Sod/Tazobactam Sod (Zosyn) 3.375 gm in 50 mls @ 12.5 mls/hr IV Q8 [facility] Last Admin: 03/24/18 06:05 Dose: 12.5 mls/hr Vancomycin IV Pharmacy to Dose (1 ea/ Sodium Chloride) 500 mls @ 250 mls/hr IV X1 PRN; Protocol PRN Reason: Rx to Dose Vancomycin HCl (Vancomycin) 1,000 mg in 200 mls @ 200 mls/hr IV Q12H [facility] Last Admin: 03/24/18 02:16 Dose: 200 mls/hr Insulin Glargine (Lantus (Bkc)) 50 units SC DAILY [facility] Last Admin: 03/24/18 07:47 Dose: 50 units Insulin Human Lispro (Humalog Kwikpen (Bkc)) 17 unit SC TIDCM [facility] Last Admin: 03/24/18 07:46 Dose: 17 units Insulin Human Lispro (Humalog Kwikpen (Bkc)) 0 unit SQ ACHS [facility]; Protocol Last Admin: 03/24/18 07:46 Dose: 2 units Levothyroxine Sodium (Synthroid) 175 mcg PO DAILY@0600 [facility] Last Admin: 03/24/18 06:05 Dose: 175 mcg Lisinopril (Zestril) 40 mg PO QHS [facility] Last Admin: 03/23/18 21:39 Dose: 40 mg Morphine Sulfate () 1 - 2 mg IV Q4H PRN PRN PRN Reason: SEVERE PAIN (6-10/10) Last Admin: 03/22/18 07:02 Dose: 2 mg Ondansetron HCl (Zofran) 4 mg IV Q8H PRN PRN PRN Reason: Nausea Oxycodone HCl (Oxyir) 5 mg PO Q4H PRN PRN PRN Reason: Moderate Pain (pain scale 4-5) Last Admin: 03/23/18 05:35 Dose: 5 mg Sodium Chloride () 5 - 30 ml IV UD PRN PRN Reason: SALINE FLUSH Last Admin: 03/24/18 06:05 Dose: 30 ml Zolpidem Tartrate (Ambien (Generic)) 5 mg PO QHS PRN PRN PRN Reason: INSOMNIA Last Admin: 03/22/18 23:05 Dose: 5 mg Medical Necessity - Tobacco Use Smoking Status: Never smoker Assessment/Plan All Active Problems Left great toe plantar ulcer (Acute) Osteomyelitis (Acute) 1. Left great toe osteo secondary to DM ulcer/DM2 - IV abx with PICC line placed - C/s to ID appreciate recs - S. haemolytica and group G strep are growing, will await ID recommendations for Abx on DC - f/w with podiatry in 3 weeks to assess improvement on abx - Home health arranged - SSI and lantus, resume metformin on DC 2. Left PAD/HTN/HLD - Left VANESA is 0.97 no surgical intervention - Medical management at this time - c/w plavix - C/w home BP and lipid medications 3. hypothyroidism - FT4 1.47, TSH 0.14 - Levothyroxine decreased to 175 mcg daily. DVT: Lovenox Diet: DM Code Visit Inpatient E&M: 51124 Subs Hosp L2
--- NOTE | 2018-03-24 10:59 | PN_ITS ---
Patient Problems: Active and Suspected Problems Left great toe plantar ulcer (Acute) Osteomyelitis (Acute) Subjective: Patient seen this morning for follow up on left 1st toe osteomyelitis and ulceration. He relates he has not taken any pain medication for 1 day, states foot/toe is feeling much better. He has no new complaints. No complaints of fever, chills, nausea or vomiting. - Physical Exam General: Alert, Oriented x3, Cooperative, No apparent distress Extremities: Capillary Refill Less than 3 Seconds, No Calf Tenderness, - - Left foot - There is continued improvement - cellulitis improving, and ulceration plantar hallux at level of the sub hallux IPJ shows signs of healing, margins of ulceration healthy and viable, there is noted granular tissue present - ulcer down to bone and flexor tendon, no streaking, no visible abscess, no blistering, no crepitus present and no other open ulcerations, no evidence of acute ischemia present, there is some serous drainage from the ulcer site. Musculoskeletal: No Tenderness to Palpation of Joints or Extremities Psych/Mental Status: Normal Affect, Appropriate, Alert and oriented to time, place, person, mood and affect Vital Signs Temp Pulse Resp BP Pulse Ox 97.9 F 83 18 138/67 H 93 03/24/18 08:30 03/24/18 08:30 03/24/18 08:30 03/24/18 08:30 03/24/18 08:30 Oxygen Delivery Method Room Air Weight: 103.6 kg Body Mass Index (BMI) 32.8 Intake and Output for Last 24 Hours 03/22/18 03/23/18 03/24/18 23:59 23:59 23:59 Intake Total 1985 2439 / 2439 539 / 539 Balance 1985 2439 / 2439 539 / 539 Microbiology Past 72 Hours 03/21/18 11:00 Gram Stain - Final Wound - Left Foot Wound Culture - Final Streptococcus group G Staphylococcus haemolyticus Eggerthia catenaformis 03/21/18 11:05 Blood Culture - Preliminary Blood Culture (Wb) - Anticubital Left No growth in 48 hours. Laboratory Tests Past 24 Hrs 03/23/18 03/24/18 03/24/18 23:26 05:38 05:38 WBC 8.5 RBC 4.05 L Hgb 11.6 L Hct 35.3 L MCV 87.2 MCH 28.6 MCHC 32.9 RDW 12.4 RDW Differential 38.9 Plt Count 357 MPV 9.7 Immature Gran % (Auto) 0.200 Neut % (Auto) 55.1 Lymph % (Auto) 29.2 [place] % (Auto) 10.5 H Eos % (Auto) 4.4 Baso % (Auto) 0.6 Absolute Neuts (auto) 4.7 Absolute Lymphs (auto) 2.48 Total Counted Not Reportable Sodium 137 Potassium 4.1 Chloride 102 Carbon Dioxide 27.0 Anion Gap 8 BUN 21 H Creatinine 1.39 H Estim Creat Clear Calc 53.98 Est GFR (MDRD) Af Amer 66 Est GFR (MDRD) Non-Af 54 L BUN/Creatinine Ratio 15.1 Glucose 138 H Calcium 8.7 Vancomycin Trough 15.9 H POC Glucose 03/24/18 03/23/18 03/23/18 07:45 21:34 17:00 POC Glucose 166 H 156 H 178 H 03/23/18 11:03 POC Glucose 298 H Medical Necessity - Tobacco Use Smoking Status: Never smoker Assessment/Plan All Active Problems Left great toe plantar ulcer (Acute) Osteomyelitis (Acute) Cellulitis left foot Ulceration down to bone left hallux with osteomyelitis present Diabetic Neuropathy Peripheral arterial disease Eczema dermatitis left and right ankle Continued improvement noted. Continue to follow cultures and continue with antibiotic therapy per ID service. Spoke with Dr. Isreal Valero from vascular - [place] for patient to follow up with him as outpatient in office in a couple weeks. Continue with local wound care - pack w/ Iodoform or gauze packing with overlying gauze dressing changes - change daily. Advised patient strict nonweightbearing to the ulcer site left foot. Surgical shoe and an offloading insert has been fitted and dispensed to patient. Recommend home nursing initially for patient once discharged home - order placed. Reviewed importance of proper blood sugar control to optimize healing and optimize foot/ankle health. Triamcinolone 0.1% cream for eczema dermatitis bilateral ankle (left worse than right). Ok for patient to go home when ok by ID and medicine team as well. Patient to follow up with me in office on Tuesday03/27/18 - sooner if needed. This was discussed with him, he agreed with plan.
--- NOTE | 2018-03-24 11:00 | PCM.DC.POD ---
Weight Bearing Status: No weight bearing - No weightbearing on toes or ball of left foot - keep ulcer on left great toe offloaded (with no pressure or weight) at all times Call your doctor if your incision/area has: Continuous Slow Oozing, Sudden Increased Bleeding, Increased Pain/ Swelling, Increased Redness, Foul Smelling Discharge Call your doctor if you observe: Fever of 101 or Higher, Shortness of breath, Chest pain, Calf discomfort, Uncontrolled pain Cleanse incision/area with: - - Wound care instructions: Cleanse left 1st toe wound/ulcer site with normal saline solution, pack with Iodoform or plain gauze packing - apply overlying gauze, daisha and traun dressing. Change daily. Allergies/Adverse Reactions: Allergies No Known Allergies Allergy (Verified 03/21/18 10:55) Medications to take at Discharge RX: Atorvastatin Calcium 40 mg PO QHS 03/21/18 RX: Hydrochlorothiazide 12.5 mg PO QHS 03/21/18 RX: Insulin Glargine/Lixisenatide [Soliqua 100 Unit-33 Mcg/ml Pen] 47 units SQ BREAKFAST 03/21/18 RX: Insulin Lispro [Humalog KwikPen] 13 units SQ TIDCM 03/21/18 RX: Metformin HCl [Glucophage] 1,000 mg PO BIDCM 03/21/18 RX: Quinapril HCl 40 mg PO QHS 03/21/18 RX: Ceftriaxone 2 gm IV Q24 #40 vial 03/24/18 RX: Clopidogrel Bisulfate [Plavix] 75 mg PO DAILY #30 tablet 03/24/18 RX: Levothyroxine [Synthroid] 175 mcg PO DAILY@0600 #30 tablet 03/24/18 RX: Metronidazole [Flagyl] 500 mg PO TID #120 tab 03/24/18 The following prescriptions were given: RX: Ceftriaxone 2 gm IV Q24 #40 vial RX: Clopidogrel Bisulfate [Plavix] 75 mg PO DAILY #30 tablet RX: Levothyroxine [Synthroid] 175 mcg PO DAILY@0600 #30 tablet RX: Metronidazole [Flagyl] 500 mg PO TID #120 tab Primary Care Physician: Malik Valero III, MD [Primary Care Provider] - Test Results: Test results from this visit will be discussed in further detail at your follow-up appointment, if applicable. Please Follow Up With: Aj Kellogg DPM - Office location: [address] [place] [address]. Office phone number: [phone] When: Tuesday03/27/18, sooner if needed.
--- NOTE | 2018-03-24 11:03 | DCINST_ITS ---
Weight Bearing Status: No weight bearing - No weightbearing on toes or ball of left foot - keep ulcer on left great toe offloaded (with no pressure or weight) at all times Call your doctor if your incision/area has: Continuous Slow Oozing, Sudden Increased Bleeding, Increased Pain/ Swelling, Increased Redness, Foul Smelling Discharge Call your doctor if you observe: Fever of 101 or Higher, Shortness of breath, Chest pain, Calf discomfort, Uncontrolled pain Cleanse incision/area with: - - Wound care instructions: Cleanse left 1st toe wound/ulcer site with normal saline solution, pack with Iodoform or plain gauze packing - apply overlying gauze, daisha and tarun dressing. Change daily. Allergies/Adverse Reactions: Allergies No Known Allergies Allergy (Verified 03/21/18 10:55) Medications to take at Discharge RX: Atorvastatin Calcium 40 mg PO QHS 03/21/18 RX: Hydrochlorothiazide 12.5 mg PO QHS 03/21/18 RX: Insulin Glargine/Lixisenatide [Soliqua 100 Unit-33 Mcg/ml Pen] 47 units SQ BREAKFAST 03/21/18 RX: Insulin Lispro [Humalog KwikPen] 13 units SQ TIDCM 03/21/18 RX: Metformin HCl [Glucophage] 1,000 mg PO BIDCM 03/21/18 RX: Quinapril HCl 40 mg PO QHS 03/21/18 RX: Ceftriaxone 2 gm IV Q24 #40 vial 03/24/18 RX: Clopidogrel Bisulfate [Plavix] 75 mg PO DAILY #30 tablet 03/24/18 RX: Levothyroxine [Synthroid] 175 mcg PO DAILY@0600 #30 tablet 03/24/18 RX: Metronidazole [Flagyl] 500 mg PO TID #120 tab 03/24/18 The following prescriptions were given: RX: Ceftriaxone 2 gm IV Q24 #40 vial RX: Clopidogrel Bisulfate [Plavix] 75 mg PO DAILY #30 tablet RX: Levothyroxine [Synthroid] 175 mcg PO DAILY@0600 #30 tablet RX: Metronidazole [Flagyl] 500 mg PO TID #120 tab Primary Care Physician: Malik Valero III, MD [Primary Care Provider] - Test Results: Test results from this visit will be discussed in further detail at your follow- up appointment, if applicable. Please Follow Up With: Aj Kellogg DPM - Office location: [address] [place] [address]. Office phone number: [phone] When: Tuesday03/27/18, sooner if needed.
--- NOTE | 2018-03-24 11:41 | CASEMGMT ---
SW received referral for LW/POA. SW met w/pt in room, pt did not want to completed the forms now, just wanted to review them. SW reviewed the forms w/the pt, gave pt blank copies and the number to the SW department should he want assist in completing the forms after discharge. Pt states understanding, no further needs anticipated at this time. PRITI Clinton, FORMULA CHECKER
[2018-03-24 12:01] LABS: Bedside Glucose 210 mg/dL (70-110)
[2018-03-24] MEDS: metroNIDAZOLE 500 MG Tablet PO (13:39)
[2018-03-24 13:45] VITALS: BP 151/56; PULSE 76; RESP 20; TEMP 36.6; O2SAT 97
--- NOTE | 2018-03-24 13:57 | PN.ID_ITS ---
Patient Problems: Active and Suspected Problems Left great toe plantar ulcer (Acute) Osteomyelitis (Acute) Subjective: Feeling much better, no fever, no n/v/d. - Physical Exam General: Alert, Cooperative, No apparent distress Lungs: Clear to auscultation, Normal air movement Cardiovascular: Regular rate, Regular Rhythm Abdomen: Soft, Non Tender, Non-Distended Skin: No rashes, Incision - bandaged Vital Signs Temp Pulse Resp BP Pulse Ox 97.8 F 76 20 H 151/56 H 97 03/24/18 13:45 03/24/18 13:45 03/24/18 13:45 03/24/18 13:45 03/24/18 13:45 Oxygen Delivery Method Room Air Weight: 103.6 kg Body Mass Index (BMI) 32.8 Intake and Output for Last 24 Hours 03/22/18 03/23/18 03/24/18 23:59 23:59 23:59 Intake Total 1985 2439 / 2439 1016 / 1016 Balance 1985 243 / 2439 1016 / 1016 Microbiology Past 72 Hours 03/21/18 11:00 Gram Stain - Final Wound - Left Foot Wound Culture - Final Streptococcus group G Staphylococcus haemolyticus Eggerthia catenaformis 03/21/18 11:05 Blood Culture - Preliminary Blood Culture (Wb) - Anticubital Left No growth in 48 hours. Laboratory Tests Past 24 Hrs 03/23/18 03/24/18 03/24/18 23:26 05:38 05:38 WBC 8.5 RBC 4.05 L Hgb 11.6 L Hct 35.3 L MCV 87.2 MCH 28.6 MCHC 32.9 RDW 12.4 RDW Differential 38.9 Plt Count 357 MPV 9.7 Immature Gran % (Auto) 0.200 Neut % (Auto) 55.1 Lymph % (Auto) 29.2 [place] % (Auto) 10.5 H Eos % (Auto) 4.4 Baso % (Auto) 0.6 Absolute Neuts (auto) 4.7 Absolute Lymphs (auto) 2.48 Total Counted Not Reportable Sodium 137 Potassium 4.1 Chloride 102 Carbon Dioxide 27.0 Anion Gap 8 BUN 21 H Creatinine 1.39 H Estim Creat Clear Calc 53.98 Est GFR (MDRD) Af Amer 66 Est GFR (MDRD) Non-Af 54 L BUN/Creatinine Ratio 15.1 Glucose 138 H Calcium 8.7 Vancomycin Trough 15.9 H POC Glucose 03/24/18 03/24/18 03/23/18 11:53 07:45 21:34 POC Glucose 210 H 166 H 156 H 03/23/18 17:00 POC Glucose 178 H Medical Necessity - Tobacco Use Smoking Status: Never smoker Route of nutrition/ use of supplements: [] Nutritional Intake: [] IV Site: [] Shore Catheter: [] - Assessment/Plan Antibiotics: [] Assessment/Plan: [] Active and Suspected Problems Left great toe plantar ulcer (Acute) L 1st toe osteo with DM - s/p bedside debridement 03/[address] Kellogg. Cxs with strep, MS-staph haemolyticus, and eggerthia. Picc placed. Ok for d/c home on iv ceftriaxone and po flagyl, stop date 05/02/18, weekly bmp, cbc, and esr. ID follow-up with me at wound care center in 2-3 weeks. Will follow, d/w primary team, rx written. Reviewed side effects with him for abx including avoiding etoh.
--- NOTE | 2018-03-24 14:00 | CASEMGMT ---
VINOD PINTO obtained script for FWW and IV ATBs. VINOD PINTO sent referral to [facility] and arranged for delivery of FWW. IV ATB script forwarded to [facility] and confirmed IV ATB setup for at home with start of care for 03/25/18 1400. VINOD PINTO [facility] and start of care for 1400.
--- NOTE | 2018-03-24 14:10 | PCM.DC ---
- Discharge Diagnoses Current Active Problems: Current Active and Chronic Problems Left great toe plantar ulcer (Acute) Osteomyelitis (Acute) You will use the following diet at home:: Regular Your food should be the consistency of: Regular Your liquids should be the consistency of: Regular/Thin Discharge Activity: No Restrictions Weight Bearing Status: No weight bearing - No weightbearing on toes or ball of left foot - keep ulcer on left great toe offloaded (with no pressure or weight) at all times Call your doctor if your incision/area has: Continuous Slow Oozing, Sudden Increased Bleeding, Increased Pain/ Swelling, Increased Redness, Foul Smelling Discharge Call your doctor if you observe: Fever of 101 or Higher, Shortness of breath, Chest pain, Calf discomfort, Uncontrolled pain Cleanse incision/area with: - - Wound care instructions: Cleanse left 1st toe wound/ulcer site with normal saline solution, pack with Iodoform or plain gauze packing - apply overlying gauze, daisha and tarun dressing. Change daily. Allergies/Adverse Reactions: Allergies No Known Allergies Allergy (Verified 03/21/18 10:55) Medications to take at Discharge Atorvastatin Calcium 40 mg PO QHS 03/21/18 Hydrochlorothiazide 12.5 mg PO QHS 03/21/18 Insulin Glargine/Lixisenatide [Soliqua 100 Unit-33 Mcg/ml Pen] 47 units SQ BREAKFAST 03/21/18 Insulin Lispro [Humalog KwikPen] 13 units SQ TIDCM 03/21/18 Levothyroxine Sodium 200 mcg PO DAILY 03/21/18 Metformin HCl [Glucophage] 1,000 mg PO BIDCM 03/21/18 Quinapril HCl 40 mg PO QHS 03/21/18 Ceftriaxone 2 gm IV Q24 #40 vial 03/24/18 Clopidogrel Bisulfate [Plavix] 75 mg PO DAILY #30 tablet 03/24/18 Metronidazole [Flagyl] 500 mg PO TID #120 tab 03/24/18 The following prescriptions were given: Ceftriaxone 2 gm IV Q24 #40 vial Clopidogrel Bisulfate [Plavix] 75 mg PO DAILY #30 tablet Metronidazole [Flagyl] 500 mg PO TID #120 tab Primary Care Physician: Malik Valero III, MD [Primary Care Provider] - Test Results: Test results from this visit will be discussed in further detail at your follow-up appointment, if applicable. Please Follow Up With: Aj Kellogg DPM - Office location: [address] [place] [address]. Office phone number: [phone] When: Tuesday03/27/18, sooner if needed. Please Follow Up With: Kevin Emmanuel MD When: 2-3 weeks
--- NOTE | 2018-03-24 14:24 | DS.PCM_ITS ---
Discharge Date and Diagnosis - Problem List Patient Problems: Active and Suspected Problems Left great toe plantar ulcer (Acute) Osteomyelitis (Acute) Date of Admission: 03/21/18 Date of Discharge: 03/24/18 - Primary Discharge Diagnosis Active and Suspected Problems Left great toe plantar ulcer (Acute) Osteomyelitis (Acute) - Secondary Discharge Diagnosis Chronic Problems Obesity (Chronic) Hypothyroidism (Chronic) HLD (hyperlipidemia) (Chronic) Diabetic autonomic neuropathy (Chronic) DM2 (diabetes mellitus, type 2) (Chronic) Benign essential HTN (Chronic) Hospital Course and Treatment Imaging Results: LE MRI: IMPRESSION: Osteomyelitis of the phalanges of the great toe. B/L LE Arterial Doppler: Patient with a left great toe ulceration Right lower extremity The right PT and DP ankle-brachial index at rest are 1.171.07 respectively with a digital index of 0.77. The right posterior tibial and dorsalis pedis Doppler waveforms are triphasic. Volume pulse recordings demonstrate normal amplification at the calf. Ankle and digital waveforms are well maintained. Left lower extremity The left PT and DP ankle-brachial indices at rest are 0.97 and 0.78 respectively. Digital indices were not obtained. The left posterior tibial and dorsalis pedis demonstrate biphasic Doppler waveforms. The volume pulse recordings do not demonstrate amplification at the calf. The ankle and digital waveforms are otherwise well-maintained Consults: Podiatry ID Operations: None Procedures: None Summary of Care Provided: HPI: The patient is a 67 year old M with history of diabetes mellitus type 2, hypertension came to ER with left great toe being red and swollen along with fever at home today. Patient has chronic left great toe ulcer for about 1-2 months and progressively getting worse. He was seen by PCP Dr. Malik Valero iii and was referred to wound care 3 times but unfortunately lost his referral paper and could not get access to wound center until next Tuesday. He also has redness over left lower leg near ankle and he was seen in urgent center and was given cream. Per the patient it is getting better. ]Initial basic lab work done in the ER is unremarkable except BUN 23, creatinine 1.37. Serum glucose in BMP 167. Per patient, blood sugar at home stays between 100 -150 mg percent Patient is further admitted for IV antibiotics, podiatry consult and management of ulcer. Hospital Course: 1. Left great toe osteo 2/2 DM ulcer - The discussion was had with him about conservative medical treatment with prolonged abx and surgical intervention. He has elected to have IV abx via PICC for 4-6 weeks. Wound culture with S. haemolytica, group G strep and Eggerthia. IV rocephin and PO flagyl per ID. He will have podiatry and ID f/u as an outpatient. Otherwise he is doing well, pain has resolved and his WBC is normal. 2. Left PAD - Given his ulcer he had LE arterial study that demonstrated an VANESA 0.78 on the left. He was started on plavix and will need further outpatient follow-up. He is on a statin and will need to be started on a walking regimen 3. Hypothyroidism - His TSH was found to be low and his T4 was elevated so his synthroid was decreased to 175 mcg and will need outpatient f/u with a TSH in a few weeks. 4. His other diagnoses were evaluated and his home medications were continued where appropriate. Patient Problems: Active and Suspected Problems Left great toe plantar ulcer (Acute) Osteomyelitis (Acute) - Physical Exam Vital Signs Temp Pulse Resp BP Pulse Ox 97.8 F 76 20 H 151/56 H 97 03/24/18 13:45 03/24/18 13:45 03/24/18 13:45 03/24/18 13:45 03/24/18 13:45 Oxygen Delivery Method Room Air Weight: 228 lb 6.382 oz Body Mass Index (BMI) 32.8 Intake and Output for Last 24 Hours 03/22/18 03/23/18 03/24/18 23:59 23:59 23:59 Intake Total 1985 2439 / 2439 1016 / 1016 Balance 1985 243 / 243 1016 / 1016 Microbiology Past 72 Hours 03/21/18 11:00 Gram Stain - Final Wound - Left Foot Wound Culture - Final Streptococcus group G Staphylococcus haemolyticus Eggerthia catenaformis 03/21/18 11:05 Blood Culture - Preliminary Blood Culture (Wb) - Anticubital Left No growth in 48 hours. Laboratory Tests Past 24 Hrs 03/23/18 03/24/18 03/24/18 23:26 05:38 05:38 WBC 8.5 RBC 4.05 L Hgb 11.6 L Hct 35.3 L MCV 87.2 MCH 28.6 MCHC 32.9 RDW 12.4 RDW Differential 38.9 Plt Count 357 MPV 9.7 Immature Gran % (Auto) 0.200 Neut % (Auto) 55.1 Lymph % (Auto) 29.2 [place] % (Auto) 10.5 H Eos % (Auto) 4.4 Baso % (Auto) 0.6 Absolute Neuts (auto) 4.7 Absolute Lymphs (auto) 2.48 Total Counted Not Reportable Sodium 137 Potassium 4.1 Chloride 102 Carbon Dioxide 27.0 Anion Gap 8 BUN 21 H Creatinine 1.39 H Estim Creat Clear Calc 53.98 Est GFR (MDRD) Af Amer 66 Est GFR (MDRD) Non-Af 54 L BUN/Creatinine Ratio 15.1 Glucose 138 H Calcium 8.7 Vancomycin Trough 15.9 H POC Glucose 03/24/18 03/24/18 03/23/18 11:53 07:45 21:34 POC Glucose 210 H 166 H 156 H 03/23/18 17:00 POC Glucose 178 H Discharge Activity: No Restrictions Weight Bearing Status: No weight bearing - No weightbearing on toes or ball of left foot - keep ulcer on left great toe offloaded (with no pressure or weight) at all times Call your doctor if your incision/area has: Continuous Slow Oozing, Sudden Increased Bleeding, Increased Pain/ Swelling, Increased Redness, Foul Smelling Discharge Call your doctor if you observe: Fever of 101 or Higher, Shortness of breath, Chest pain, Calf discomfort, Uncontrolled pain Cleanse incision/area with: - - Wound care instructions: Cleanse left 1st toe wound/ulcer site with normal saline solution, pack with Iodoform or plain gauze packing - apply overlying gauze, daisha and tarun dressing. Change daily. Home Medications: Medications to take at Discharge Atorvastatin Calcium 40 mg PO QHS 03/21/18 Hydrochlorothiazide 12.5 mg PO QHS 03/21/18 Insulin Glargine/Lixisenatide [Soliqua 100 Unit-33 Mcg/ml Pen] 47 units SQ BREAKFAST 03/21/18 Insulin Lispro [Humalog KwikPen] 13 units SQ TIDCM 03/21/18 Levothyroxine Sodium 200 mcg PO DAILY 03/21/18 Metformin HCl [Glucophage] 1,000 mg PO BIDCM 03/21/18 Quinapril HCl 40 mg PO QHS 03/21/18 Ceftriaxone 2 gm IV Q24 #40 vial 10/19/18 Clopidogrel Bisulfate [Plavix] 75 mg PO DAILY #30 tablet 03/24/18 Metronidazole [Flagyl] 500 mg PO TID #120 tab 03/24/18 Following Prescrptions Were Given to Patient: Ceftriaxone 2 gm IV Q24 #40 vial Clopidogrel Bisulfate [Plavix] 75 mg PO DAILY #30 tablet Metronidazole [Flagyl] 500 mg PO TID #120 tab Primary Care Physician: Malik Valero III, MD [Primary Care Provider] - Please Follow Up With: Aj Kellogg DPM - Office location: [address] [place] [address]. Office phone number: [phone] When: Tuesday03/27/18, sooner if needed. Please Follow Up With: Kevin Emmanuel MD When: 2-3 weeks Disposition: Home with Home Health Minutes spent on discharge:: 35 Patient Condition:: Good Medical Necessity - Tobacco Use Smoking Status: Never smoker Meaningful Use Info Meaningful Use Diagnoses (Choose all that apply): None applicable Code Visit Inpatient E&M: 82960 Disch Hosp
== END 2018-03-24 16:25 | disposition home health service (06) | DRG 623 ==
LOC: ED 11:54 → MS3 12:55
PROVIDERS: Internal Medicine Infectious Disease; Admitting Provider Internal Medicine; Emergency Provider Emergency Medicine; Family Provider Family Medicine; PCP Family Medicine; Referring Provider Internal Medicine; Visit Provider Family Medicine
DX: E11.621 Type 2 diabetes mellitus with foot ulcer (principal); M86.8X7 Other osteomyelitis, ankle and foot; L03.116 Cellulitis of left lower limb; E11.69 Type 2 diabetes mellitus with other specified complication; E03.9 Hypothyroidism, unspecified; E78.5 Hyperlipidemia, unspecified; I10 Essential (primary) hypertension; Z23 Encounter for immunization; L03.032 Cellulitis of left toe; L30.9 Dermatitis, unspecified; E66.9 Obesity, unspecified; Z68.32 Body mass index [BMI] 32.0-32.9, adult; L97.529 Non-pressure chronic ulcer of other part of left foot with unspecified severity; E11.65 Type 2 diabetes mellitus with hyperglycemia; E11.42 Type 2 diabetes mellitus with diabetic polyneuropathy; E11.51 Type 2 diabetes mellitus with diabetic peripheral angiopathy without gangrene; B95.7 Other staphylococcus as the cause of diseases classified elsewhere; B95.4 Other streptococcus as the cause of diseases classified elsewhere; B96.89 Other specified bacterial agents as the cause of diseases classified elsewhere; Z79.4 Long term (current) use of insulin
CPT/HCPCS: 36415; 36569; 73630; 73718; 80048; 80061; 80202; 81001; 82962; 83036; 84439; 84443; 85025; 86140; 87040; 87070; 87077; 87186; 87205; 87640; 90715; 93923; 97162; 97530; 99283; J7030; J7040; J7050; 90686; A4216; J0696; J2405

== ENCOUNTER 2018-04-03 11:39 | Outpatient (RCR) | payer MEDICARE, OTHER, SELFPAY ==
[2018-03-27 14:24] LABS: Hematocrit 37.8 % (40-54); Hemoglobin 12.4 g/dl (13.0-16.5); Mean Corp Hgb Conc 32.8 g/gl (32-36); Mean Corpuscular Hgb 28.4 pg (27.0-32.0); Mean Corpuscular Volume 86.5 fL (80-94); Mean Platelet Vol. 9.7 fl (6.2-12.0); Platelet Count 407 K/mm3 (150-450); RBC Distribution Width CV 12.7 % (11.6-14.6); RBC Distribution Width SD 40.6 fl (35.1-43.9); Red Blood Count 4.37 M/mm3 (4.6-6.2); White Blood Count 9.7 K/mm3 (4.4-11.0)
[2018-03-27 14:29] LABS: Scan Indicated on CBC? Y/N NO
[2018-03-27 14:37] LABS: Anion Gap 7 (5-15); BUN 29 mg/dL (7-18); BUN/Creat Ratio 24.4 RATIO (10-20); Calcium,Total 8.9 mg/dL (8.5-10.1); Chloride 100 mmol/L (98-107); Creatinine, Serum 1.19 mg/dL (0.70-1.30); EST Glomerular Filtration Rate 65 mL/min (>60); Est Glom Filt Rate - Afr Amer 79 mL/min (>60); Glucose 182 mg/dL (74-106); Potassium 4.2 mmol/L (3.5-5.1); Sodium Level 133 mmol/L (136-145)
[2018-03-27 14:42] LABS: Erythrocyte Sedimentation Rate 53 mm/hr (0-20)
[2018-04-03 12:01] LABS: Erythrocyte Sedimentation Rate 62 mm/hr (0-20)
[2018-04-03 12:04] LABS: Hematocrit 38.7 % (40-54); Hemoglobin 13.2 g/dl (13.0-16.5); Mean Corp Hgb Conc 34.1 g/gl (32-36); Mean Corpuscular Hgb 29.3 pg (27.0-32.0); Mean Corpuscular Volume 85.8 fL (80-94); Mean Platelet Vol. 10.1 fl (6.2-12.0); Platelet Count 348 K/mm3 (150-450); RBC Distribution Width CV 13.1 % (11.6-14.6); RBC Distribution Width SD 40.2 fl (35.1-43.9); Red Blood Count 4.51 M/mm3 (4.6-6.2); White Blood Count 9.7 K/mm3 (4.4-11.0)
[2018-04-03 12:07] LABS: Anion Gap 8 (5-15); BUN 16 mg/dL (7-18); Calcium,Total 8.9 mg/dL (8.5-10.1); Chloride 98 mmol/L (98-107); Creatinine, Serum 1.14 mg/dL (0.70-1.30); EST Glomerular Filtration Rate 68 mL/min (>60); Est Glom Filt Rate - Afr Amer 83 mL/min (>60); Glucose 115 mg/dL (74-106); Potassium 4.1 mmol/L (3.5-5.1); Sodium Level 132 mmol/L (136-145)
[2018-04-03 12:12] LABS: Scan Indicated on CBC? Y/N NO
== END 2018-04-05 23:59 ==
LOC: HHLAB 11:39
PROVIDERS: Family Provider Family Medicine; PCP Family Medicine; Referring Provider Internal Medicine Infectious Disease; Visit Provider Internal Medicine Infectious Disease
DX: M86.172 Other acute osteomyelitis, left ankle and foot (principal); E11.621 Type 2 diabetes mellitus with foot ulcer; L97.509 Non-pressure chronic ulcer of other part of unspecified foot with unspecified severity
CPT/HCPCS: 80048; 85027; 85652

== ENCOUNTER → 2018-04-24 18:40 | Outpatient (CLI) | payer MEDICARE, OTHER, SELFPAY ==
[2018-04-24 19:22] LABS: Anion Gap 9 (5-15); BUN 13 mg/dL (7-18); BUN/Creat Ratio 13.4 RATIO (10-20); Calcium,Total 8.2 mg/dL (8.5-10.1); Chloride 97 mmol/L (98-107); Creatinine, Serum 0.97 mg/dL (0.70-1.30); EST Glomerular Filtration Rate 82 mL/min (>60); Est Glom Filt Rate - Afr Amer 100 mL/min (>60); Glucose 218 mg/dL (74-106); Potassium 4.1 mmol/L (3.5-5.1); Sodium Level 131 mmol/L (136-145)
[2018-04-24 19:41] LABS: Erythrocyte Sedimentation Rate 36 mm/hr (0-20)
[2018-04-24 19:45] LABS: Hematocrit 37.5 % (40-54); Hemoglobin 12.6 g/dl (13.0-16.5); Mean Corp Hgb Conc 33.6 g/gl (32-36); Mean Corpuscular Hgb 29.1 pg (27.0-32.0); Mean Corpuscular Volume 86.6 fL (80-94); Mean Platelet Vol. 10.4 fl (6.2-12.0); Platelet Count 300 K/mm3 (150-450); RBC Distribution Width SD 43.2 fl (35.1-43.9); Red Blood Count 4.33 M/mm3 (4.6-6.2); White Blood Count 6.7 K/mm3 (4.4-11.0)
[2018-04-24 19:58] LABS: Scan Indicated on CBC? Y/N NO
== END ==
PROVIDERS: Family Provider Family Medicine; PCP Family Medicine; Visit Provider Internal Medicine Infectious Disease
DX: E11.621 Type 2 diabetes mellitus with foot ulcer (principal); M86.8X7 Other osteomyelitis, ankle and foot; L03.116 Cellulitis of left lower limb
CPT/HCPCS: 80048; 85027; 85652

== ENCOUNTER 2018-05-01 15:24 | Outpatient (RCR) | payer MEDICARE, OTHER, SELFPAY ==
[2018-04-10 13:57] LABS: Erythrocyte Sedimentation Rate 55 mm/hr (0-20)
[2018-04-10 13:59] LABS: Anion Gap 8 (5-15); BUN 21 mg/dL (7-18); BUN/Creat Ratio 18.8 RATIO (10-20); Calcium,Total 8.7 mg/dL (8.5-10.1); Chloride 98 mmol/L (98-107); Creatinine, Serum 1.12 mg/dL (0.70-1.30); EST Glomerular Filtration Rate 70 mL/min (>60); Est Glom Filt Rate - Afr Amer 84 mL/min (>60); Glucose 120 mg/dL (74-106); Potassium 4.4 mmol/L (3.5-5.1); Sodium Level 133 mmol/L (136-145)
[2018-04-10 14:10] LABS: Hematocrit 39.7 % (40-54); Hemoglobin 13.5 g/dl (13.0-16.5); Mean Corpuscular Volume 85.4 fL (80-94); Mean Platelet Vol. 10.5 fl (6.2-12.0); Platelet Count 294 K/mm3 (150-450); RBC Distribution Width CV 13.6 % (11.6-14.6); RBC Distribution Width SD 41.4 fl (35.1-43.9); Red Blood Count 4.65 M/mm3 (4.6-6.2); White Blood Count 6.3 K/mm3 (4.4-11.0)
[2018-04-10 14:11] LABS: Scan Indicated on CBC? Y/N NO
[2018-04-17 15:58] LABS: Hematocrit 40.2 % (40-54); Hemoglobin 13.2 g/dl (13.0-16.5); Mean Corp Hgb Conc 32.8 g/gl (32-36); Mean Corpuscular Hgb 28.6 pg (27.0-32.0); Mean Platelet Vol. 10.2 fl (6.2-12.0); Platelet Count 244 K/mm3 (150-450); RBC Distribution Width CV 14.2 % (11.6-14.6); RBC Distribution Width SD 44.8 fl (35.1-43.9); Red Blood Count 4.62 M/mm3 (4.6-6.2); White Blood Count 6.1 K/mm3 (4.4-11.0)
[2018-04-17 16:00] LABS: Scan Indicated on CBC? Y/N NO
[2018-04-17 16:01] LABS: Anion Gap 7 (5-15); BUN 17 mg/dL (7-18); Calcium,Total 8.8 mg/dL (8.5-10.1); Chloride 98 mmol/L (98-107); Creatinine, Serum 1.06 mg/dL (0.70-1.30); EST Glomerular Filtration Rate 74 mL/min (>60); Est Glom Filt Rate - Afr Amer 90 mL/min (>60); Glucose 93 mg/dL (74-106); Potassium 4.4 mmol/L (3.5-5.1); Sodium Level 131 mmol/L (136-145)
[2018-04-17 16:59] LABS: Erythrocyte Sedimentation Rate 56 mm/hr (0-20)
[2018-05-01 15:47] LABS: Hematocrit 40.1 % (40-54); Hemoglobin 13.6 g/dl (13.0-16.5); Mean Corp Hgb Conc 33.9 g/gl (32-36); Mean Corpuscular Hgb 29.2 pg (27.0-32.0); Mean Corpuscular Volume 86.2 fL (80-94); Mean Platelet Vol. 10.2 fl (6.2-12.0); Platelet Count 311 K/mm3 (150-450); RBC Distribution Width CV 14.2 % (11.6-14.6); RBC Distribution Width SD 43.7 fl (35.1-43.9); Red Blood Count 4.65 M/mm3 (4.6-6.2); White Blood Count 6.1 K/mm3 (4.4-11.0)
[2018-05-01 15:48] LABS: Scan Indicated on CBC? Y/N NO
[2018-05-01 15:51] LABS: Anion Gap 7 (5-15); BUN 19 mg/dL (7-18); BUN/Creat Ratio 17.4 RATIO (10-20); Calcium,Total 8.9 mg/dL (8.5-10.1); Chloride 97 mmol/L (98-107); Creatinine, Serum 1.09 mg/dL (0.70-1.30); EST Glomerular Filtration Rate 72 mL/min (>60); Est Glom Filt Rate - Afr Amer 87 mL/min (>60); Glucose 268 mg/dL (74-106); Potassium 4.6 mmol/L (3.5-5.1); Sodium Level 130 mmol/L (136-145)
[2018-05-01 16:12] LABS: Erythrocyte Sedimentation Rate 30 mm/hr (0-20)
== END 2018-05-05 23:59 ==
LOC: HHLAB 15:24
PROVIDERS: Family Provider Family Medicine; PCP Family Medicine; Referring Provider Internal Medicine Infectious Disease; Visit Provider Internal Medicine Infectious Disease
DX: M86.172 Other acute osteomyelitis, left ankle and foot (principal); E11.621 Type 2 diabetes mellitus with foot ulcer
CPT/HCPCS: 80048; 85027; 85652

== ENCOUNTER 2018-05-12 11:59 | Day surgery (SDC) | payer MEDICARE, OTHER, SELFPAY ==
[2018-05-12 12:18] VITALS: BP 151/73; PULSE 75; RESP 16; TEMP 36.4; O2SAT 97; BMI 33.0
[2018-05-12 13:10] LABS: Bedside Glucose 130 mg/dL (70-110)
--- NOTE | 2018-05-12 13:30 | BON_PTH ---
PATIENT: BRI GRAHAM LOC: [facility] U#:[id number] AGE/SX: 67/M ROOM: RE05/12/[address]: Dr. Aj Kellogg DPM : [id number] BED: DIS: 05/12/2018 SPEC #: [id number] RECD: 05/15/18 09:05 STATUS: GRANT MANDA #: [id number] ROSEY: 05/12/18 13:[address]: Aj Kellogg DEPT: SURGICAL PATHOLOGY RECD BY: Chris Conteh ENTERED: 05/15/18 12:51 SP TYPE: Bone OTHR DR: Dr. Malik Valero III, MD Tissues: A - Bone of foot, NOS B - Great toe, NOS Procedures: Decalcification bone/plaque Surgery Specimen Level III Surgery Specimen Level IV HEADER OPERATION: Bone biopsy, amputation first toe PRE-OP DIAGNOSIS: Left great toe diabetic ulcer; diabetic peripheral neuropathy TISSUE SUBMITTED: A - Left great toe clearance fragment, B - Great toe MICROSCOPIC DIAGNOSIS A. Left great toe clearance fragment: A piece of bone, negative for acute osteomyelitis. B. Great toe, amputation: Soft tissue with focal chronic inflammation and granulation tissue reaction. Underlying bone with chronic inflammation, reaactive changes and negative for acute osteomyelitis. : 05/18/18 MICROSCOPIC DESCRIPTION Slides are reviewed. GROSS DESCRIPTION A - Received in fixative is one container labeled with the patient's name and designated left great toe clearance fragment. The specimen consists of an irregular fragment of light cage bone measuring 1.5 x 1 x 0.2 cm. The specimen is submitted in its entirety in one cassette after decalcification. B - Received in fixative is one container labeled with the patient's name and designated left great toe. The specimen consists of multiple irregular fragments of bone, skin and soft tissue that in aggregate measure 8 x 6.5 x 2 cm. The largest fragment consists of a portion of toe that has nail and soft tissue. The dorsal skin and soft tissue is missing. The nail is grossly unremarkable. A medical claims representative longitudinal section of the toe is submitted in one cassette after decalcification. / AM: 05/15/18 More sections are submitted as follows: 2 - more soft tissue, 3 & 4 - bone after decalcification. / :eduar 05/18/18 TC: 3 CPT: 78973, 01924, 16826 x2
[2018-05-12] MEDS: Cefazolin 2 GM in 0.9% Normal Saline 100 ML IV (16:32)
[2018-05-12] MEDS: Bupivacaine 0.5% PF 10 ML VIAL (17:24)
--- NOTE | 2018-05-12 17:32 | RAD_ITS ---
STUDY: X-RAY - LEFT FOOT CLINICAL: Male, 67 years old. Postop bone biopsy amputation first toe. TECHNIQUE: 3 view(s) of the foot. COMPARISON: 03/21/2018. FINDINGS: The patient is status post amputation of the great toe at the proximal phalangeal shaft. Trace gas in the stomach is consistent with postoperative changes. There is no fracture or dislocation. Joint spaces are well-maintained. Periosteal reaction is again noted along the second, third, and fourth metatarsals. RAD/Foot min 3 Views IMPRESSION: Status post amputation of the great toe. Mild soft tissue gas is consistent with recent surgery. Electronically Signed: Lidia Polanco MD at 19:50 EST Tel , Service support ,
--- NOTE | 2018-05-12 17:34 | DCINST_ITS ---
Discharge Diet: Light diet - advance as tolerated Discharge Activity: May Not Drive Weight Bearing Status: No weight bearing - No weight on left foot Keep extremity elevated above heart level: Left Leg - Keep left foot elevated for at least 50 minutes of every hour Call your doctor if your incision/area has: Continuous Slow Oozing, Sudden Increased Bleeding, Increased Pain/ Swelling, Foul Smelling Discharge Call your doctor if you observe: Fever of 101 or Higher, Shortness of breath, Chest pain, Increased palpitations (irregular heartbeat), Calf discomfort, Uncontrolled pain Cleanse incision/area with: Do not get Incision Wet, Keep Dressing Clean & Dry Allergies/Adverse Reactions: Allergies No Known Allergies Allergy (Verified 05/10/18 10:36) Medications to take at Discharge Atorvastatin Calcium 40 mg PO QHS 03/21/18 Hydrochlorothiazide 12.5 mg PO QHS 03/21/18 Insulin Glargine/Lixisenatide [Soliqua 100 Unit-33 Mcg/ml Pen] 47 units SQ BREAK FAST 03/21/18 Insulin Lispro [Humalog KwikPen] 13 units SQ TIDCM 03/21/18 Metformin HCl [Glucophage] 1,000 mg PO BIDCM 03/21/18 Quinapril HCl 40 mg PO QHS 03/21/18 Levothyroxine [Synthroid] 175 mcg PO DAILY@0600 #30 tablet 03/24/18 Amoxicillin/Potassium Clav [Augmentin 875-125 Tablet] 1 each PO BID 05/10/18 Primary Care Physician: Malik Valero III, MD [Primary Care Provider] - Test Results: Test results from this visit will be discussed in further detail at your follow- up appointment, if applicable. Please Follow Up With: Aj Kellogg DPM When: within 1 week, sooner if needed
--- NOTE | 2018-05-12 17:36 | OP.PCM_ITS ---
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 Singh Type of Anesthesia:: Local Specimen's removed: 1. Amputated great toe, left - sent to pathology and microbiology. 2. Clearance fragment left great toe - sent to pathology and microbiology Estimated Blood Loss (mL): 1mL Description of Procedure: Indications: The patient is a 67 year old gentleman with diabetic neuropathy with chronic ulceration left 1st toe with osteomyelitis present. Patient has completed course of 6 weeks of IV antibiotics however continues to have deep ulceration and bone changes with dorsal 1st toe erythema consistent with continued infection. There is noted to be erosion of bone at level of the IPJ hallux on xrays. Given the findings, we discussed the options, which were also discussed with Dr. Emmanuel. The patient ultimately patient elected to proceed with the surgery - 1st toe amputation with bone biopsy - left. This was discussed with him in detail, reviewed the possible benefits vs risks. All questions were answered. The consents form were reviewed and it was freely signed. No guarantees were given nor implied. Operative Procedure: The patient was brought into the operating room, and was placed on the operating room table in the supine position. He was carefully secured to the operating room table with a safely belt around his waist. A time out was performed, the patient was properly identified and the surgical plan was confirmed. Patient received 2 grams of IV Cephazolin for further antibiotic prophylaxis. A well padded pneumatic tourniquet was placed around the left ankle. The patient received a left ankle block by Dr. Hill (anesthesia) in the pre operative holding are. The left foot was scrubbed, prepped and draped in the usual aseptic fashion. The left foot was elevated for 3 minutes, and the left ankle pneumatic tourniquet was inflated to 250mmHg. There was noted to be an ulceration to the plantar hallux at level of the interphalangeal joint, probed deep, and there was chronic edema and erythema to the toe. Using a 15 scalpel blade, an incision was made around the toe at level of the interphalangeal joint. The toe was disarticulated at the interphalangeal joint excising the distal toe and ulceration. The bone at the level of the interphalangeal joint was soft, necrotic and nonviable consistent with infection, there was also noted to be chronic soft tissue abscess at this time. The head of the proximal phalanx of the hallux was resected using a powered sagittal saw. The bone at the shaft of the hallux proximal phalanx was white, hard and viable in appearance. A 2mm slice of bone resected at this level and was sent to pathology and microbiology as a clearance fragment. The amputated distal toe was sent to pathology and microbiology for further evaluation as well. All nonviablet soft tissue was removed sharply. A plantar and dorsal flap were created. The site was flushed out with copious amounts of normal saline solution. All remaining tissues appeared to be healthy and viable, free of any infection. The site was again flushed out with copious amounts of normal saline solution. The skin edges were brought together and were reapproximated using 3-0 Prolene. 5mL of 0.5% Bupivacaine plain was given as a local nerve block around the surgical site. The pneumatic tourniquet was deflated, and there was immediate return of good vascular flow to the left foot, with normal temperature gradient and CFT < 2 seconds to the amputation site and to the remaining hallux and to all remaining toes. Total tourniquet time was 41 minutes. A dressing was applied which consisted of betadine soaked adaptic, 4x4 gauze, kerlix and tarun dressing. Patient tolerated the above procedure well with no complications. The patient was transferred from the operating room to the recovery room with vital signs stable and in good condition. Post op xrays were ordered of the left foot - s/p partial hallux amputation with bone biopsy noted, otherwise no actue changes and stable xrays. Post operative orders were placed. Post operative instructions were reviewed with the patient and his who was with him today. No weightbearing left foot, keep left foot elevated at least 50 minutes of every hour. Prescription for [place] 5mg/325mg tab - 1 tab PO q 6 hours was prescribed. Patient to continue with antibiotic Augmentin as prescribed by Dr. Emmanuel. Patient to follow up with me in 1 week, sooner if needed. Grafts/Implants Used: None - Complications None
[2018-05-12 17:48] VITALS: BP 151/73; BP 153/73; PULSE 75; RESP 16; TEMP 37; O2SAT 97
== END 2018-05-12 18:10 | disposition home or self-care (01) ==
LOC: SDC 12:00 → AC 12:02
PROVIDERS: Family Provider Family Medicine; PCP Family Medicine; Referring Provider Podiatrist; Visit Provider Podiatrist
PROC: (CPT 20240; principal; 2018-05-12 13:15)
DX: E11.40 Type 2 diabetes mellitus with diabetic neuropathy, unspecified (principal); E11.621 Type 2 diabetes mellitus with foot ulcer; E11.29 Type 2 diabetes mellitus with other diabetic kidney complication; I10 Essential (primary) hypertension; E78.5 Hyperlipidemia, unspecified; E03.9 Hypothyroidism, unspecified; E66.9 Obesity, unspecified; Z68.33 Body mass index [BMI] 33.0-33.9, adult; Z79.4 Long term (current) use of insulin; Z79.899 Other long term (current) drug therapy
CPT/HCPCS: 20240; 28825; 73630; 82962; 87070; 87075; 87102; 87205; 87206; 88304; 88305; 88311; J7120

== ENCOUNTER 2020-10-25 01:49 | Emergency (ER) | payer MEDICARE, SELFPAY ==
[2020-10-25 01:49] VITALS: BP 161/75; PULSE 97; RESP 13; TEMP 36.9; O2SAT 97; BMI 36.0
--- NOTE | 2020-10-25 01:56 | CT_ITS ---
STUDY: CT BRAIN WITHOUT CONTRAST REASON FOR EXAM: Male, 69 years old patient with seizure. RADIATION DOSAGE (If Supplied By Facility): CTDIvol = ( 44.99 ) mGy, DLP = ( 846.73 ) mGycm TECHNIQUE: Transaxial CT imaging of the brain was performed without administration of intravenous contrast material. Multiplanar reformations are submitted for interpretation. Individualized dose optimization techniques were used for this CT. COMPARISON: No relevant priors. FINDINGS: Normal soft tissue structures. Normal calvarium. Incidental note is made of prominent ossification of the falx. Normal size ventricles and extra-axial spaces for the patient''s age. Normal white matter tracts of the cerebral hemispheres. Normal basal ganglia and thalami. Normal brainstem. Normal cerebellum. There is no intracranial hemorrhage. There is mild atherosclerotic calcification of the intracranial arteries. Normal visualized paranasal sinuses. CT/Brain/Head without Contrast IMPRESSION: No CT evidence of acute intracranial hemorrhage. Electronically Signed: Debby Gates MD at 2:39 EDT , Service support ,
[2020-10-25] MEDS: LORazepam 2 MG/ML Syringe 1 MG IV (02:02)
[2020-10-25 02:07] LABS: Absolute Lymphocyte Count 4.86 X10^3/uL (0.83-4.51); Absolute Neutrophil Count 4.7 X10^3/uL (2.0-7.7); Basophil# 0.09 X10^3/uL; Basophil% 0.8 % (0-1); Eosinophil# 0.28 X10^3/uL; Eosinophils% 2.5 % (0-5); Hematocrit 41.1 % (40-54); Hemoglobin 13.7 g/dL (13.0-16.5); Lymphocyte # 4.86 X10^3/ul (0.83-4.51); Lymphocyte % 44.2 % (19-41); Mean Corp Hgb Conc 33.3 g/dL (32-36); Mean Corpuscular Hgb 29.9 pg (27.0-32.0); Mean Corpuscular Volume 89.7 fL (80-94); Mean Platelet Vol. 10.8 fl (6.2-12.0); Monocyte# 1.01 X10^3/uL; Monocyte% 9.2 % (0-10); NRBC Flagged by Analyzer 0 % (0-5); Neutrophil # 4.71 X10^3/uL (2.7-7.7); Neutrophil % 42.8 % (47-70); Platelet Count 357 K/mm3 (150-450); RBC Distribution Width CV 12.4 % (11.6-14.6); RBC Distribution Width SD 40.7 fl (35.1-43.9); Red Blood Count 4.58 M/mm3 (4.6-6.2)
[2020-10-25 02:17] LABS: Anion Gap 12 (5-15); BUN 34 mg/dL (7-18); BUN/Creat Ratio 16.7 RATIO (10-20); Chloride 99 mmol/L (98-107); Creatinine, Serum 2.04 mg/dL (0.70-1.30); EST Glomerular Filtration Rate 35 mL/min (>60); Est Glom Filt Rate - Afr Amer 42 mL/min (>60); Estimated Creatinine Clearance 35.78 ml/min; Glucose 172 mg/dL (74-106); Potassium 4.3 mmol/L (3.5-5.1); Sodium Level 133 mmol/L (136-145)
--- NOTE | 2020-10-25 02:59 | EX.ED.DYSGE1 ---
HPI History of Present Illness Chief Complaint: Seizure Narrative Narrative: Patient reports that he went to bed feeling fine. reports approximately 1210 she noted that he was having a seizure. She reports that both arms and both legs were flailing. This lasted approximately 2 minutes. He seemed to be drooling and this was slightly bloody. reports that he did have a postictal episode. Patient did not bite his tongue. Not have any urinary incontinence. He has no history of seizures. Patient denies headache. He denies any numbness or weakness. No fever or chills. No change in his vision. Ports that he has had 2 episodes of diarrhea today. No blood in stools or black tarry stools. He denies any other complaints. [facility] Medical History Diabetes HTN (hypertension) Home Medications Soliqua 100/33 47 units SQ BREAKFAST 03/21/18 [History Last Taken Unknown] atorvastatin 40 mg PO QHS 03/21/18 [History Last Taken Unknown] hydrochlorothiazide 12.5 mg PO QHS 03/21/18 [History Last Taken Unknown] insulin lispro [Humalog KwikPen Insulin] 13 units SQ TIDCM 03/21/18 [History Last Taken Unknown] metformin 1,000 mg PO BIDCM 03/21/18 [History Last Taken Unknown] quinapril 40 mg PO QHS 03/21/18 [History Last Taken Unknown] levothyroxine 175 mcg PO DAILY@0600 #30 tablet 03/24/18 [Rx Last Taken 05/12/18 07:30 175 MCG] Allergy/AdvReac Type Severity Reaction Status Date / Time No Known Allergies Allergy Verified 05/10/18 10:36 Social History Smoking Status: Never smoker ROS ROS ED Constitutional Constitutional ED: Denies chills, fever(s) or sweats Eyes Eyes: Denies change in vision ENT ENT ED: Denies sore throat Cardiovascular Cardiovascular: Denies chest pain Respiratory/Chest Respiratory/Chest: Denies cough, dyspnea or dyspnea on exertion Gastrointestinal Gastrointestinal: Reports diarrhea; Denies abdominal pain, melena, nausea or vomiting Genitourinary Genitourinary ED: Denies dysuria or urinary frequency Musculoskeletal Musculoskeletal: Denies myalgias Integumentary Denies rash Neurologic Neurologic: Denies headache(s), paresthesias or weakness EXAM Physical Exam Const Vital Signs: 10/25/20 01:49 Temperature 98.5 F Temperature Source Temporal Pulse Rate 97 Respiratory Rate 13 Blood Pressure 161/75 H Blood Pressure Mean 103 Pulse Ox 97 Oxygen Delivery Method Room Air Positive well nourished and well developed General Appearance ED: well developed HEENT Reports normocephalic and head/scalp atraumatic Eyes PERRL Neck no lymphadenopathy, supple and no JVD General: Negative for tenderness Resp normal respiratory effort and clear to auscultation bilaterally Cardio regular rate, regular rhythm and no murmurs GI normal to inspection, nondistended, normoactive bowel sounds and non-tender GI Narrative: No guarding, rebound, or peritoneal signs. Palpation: soft Back/Spine Back/Spine Narrative: Nontender. Extremity General Extremety ED: Negative for edema or tenderness General Extremity: Negative for edema Neuro oriented x3, CN's II-XII intact bilaterally and no sensory deficits noted Sensorium / Orientation: alert Motor Exam: strength 5/5 throughout Psych mental status grossly normal Skin no rashes or lesions noted MDM MDM Lab Data Labs: Laboratory Results - last 24 hr 10/25/20 10/25/20 01:50 01:50 WBC 11.0 RBC 4.58 L Hgb 13.7 Hct 41.1 MCV 89.7 MCH 29.9 MCHC 33.3 RDW Std Deviation 40.7 RDW Coeff of Danna 12.4 Plt Count 357 MPV 10.8 Immature Gran % (Auto) 0.500 Neut % (Auto) 42.8 L Lymph % (Auto) 44.2 H [place] % (Auto) 9.2 Eos % (Auto) 2.5 Baso % (Auto) 0.8 Absolute Neuts (auto) 4.7 Absolute Lymphs (auto) 4.86 H Nucleated RBC % 0 Sodium 133 L Potassium 4.3 Chloride 99 Carbon Dioxide 22.0 Anion Gap 12 BUN 34 H Creatinine 2.04 H Estim Creat Clear Calc 35.78 Est GFR (MDRD) Af Amer 42 L Est GFR (MDRD) Non-Af 35 L BUN/Creatinine Ratio 16.7 Glucose 172 H Calcium 9.0 Radiography Diagnostic Testing: Radiology Impression Brain CT 10/25/20 01:56 IMPRESSION: No CT evidence of acute intracranial hemorrhage. Electronically Signed: Debby Gates MD at 2:39 EDT , Service support , Treatment and Re-Evaluation Comments:: Emergency department course: Patient had an IV placed. He was given a milligram of Ativan IV. He has had no further seizure activity while here. He is at his baseline. He feels well and would like to go home. Treatment plan: Patient will be discharged instructions to follow-up with Dr. Malagon as soon as possible. He does understand that he cannot drive until he is cleared by neurology. Return to the emergency department for any worsening symptoms. Disposition: To home in improved and stable condition. Discharge Plan Triage Chief Complaint: Seizure ED Provider: Mika De Dios Dx/Rx/DC Orders Clinical Impression: Seizure Instructions: ED Seizure New Onset Unknown ... Prescriptions: No Action atorvastatin 40 MG tablet 40 mg PO QHS RF: 0 quinapril 40 MG tablet 40 mg PO QHS RF: 0 metformin 1,000 MG tablet 1,000 mg PO BIDCM RF: 0 hydrochlorothiazide 12.5 MG capsule 12.5 mg PO QHS RF: 0 insulin lispro [Humalog KwikPen Insulin] 100 UNIT/ML insulin pen 13 units SQ TIDCM RF: 0 Soliqua 100/33 3 ML insulin pen 47 units SQ BREAKFAST RF: 0 levothyroxine 175 MCG tablet 175 mcg PO DAILY@0600 Qty: 30 RF: 0 Primary Care Provider: Malik Valero III Referrals: Malik Valero III, MD [Primary Care Provider] - Jonny Malagon MD [STAFF PHYSICIAN] - As soon as possible Activity Restrictions/Additional Instructions: Do not drive until you are cleared by neurology.
[2020-10-25 03:10] VITALS: BP 164/83; PULSE 93; RESP 14; TEMP 36.7; O2SAT 94
[2020-10-25 03:12] VITALS: BP 154/88; PULSE 89; RESP 22; TEMP -7.7; TEMP 18; O2SAT 95
== END 2020-10-25 03:14 | disposition home or self-care (01) ==
PROVIDERS: Emergency Provider Emergency Medicine; PCP Family Medicine
DX: R56.9 Unspecified convulsions (principal); E11.9 Type 2 diabetes mellitus without complications; I10 Essential (primary) hypertension; Z79.4 Long term (current) use of insulin; Z79.899 Other long term (current) drug therapy
CPT/HCPCS: 70450; 80048; 85025; 96374; 99285; A4216

== ENCOUNTER → 2020-11-13 12:12 | Outpatient (CLI) | payer MEDICARE, SELFPAY ==
[2020-11-13 11:01] VITALS: BMI 35.0
[2020-11-13 15:31] LABS: Vitamin B12 378 pg/mL (211-911)
[2020-11-13 16:13] LABS: T4 Free Direct 1.12 ng/dL (0.76-1.46); Thyroid Stim Hormone (TSH) 0.95 uIU/mL (0.358-3.74)
[2020-11-15 20:07] LABS: Free Kappa Light Chains 42.4 mg/L (3.3-19.4); Free Lambda Light Chains 26.2 mg/L (5.7-26.3)
== END ==
PROVIDERS: PCP Family Medicine; Referring Provider Psychiatry & Neurology Neurology; Visit Provider Psychiatry & Neurology Neurology
DX: E03.9 Hypothyroidism, unspecified (principal); E11.9 Type 2 diabetes mellitus without complications; I10 Essential (primary) hypertension
CPT/HCPCS: 36415; 82607; 82746; 83883; 84439; 84443

== ENCOUNTER → 2020-11-26 07:17 | Outpatient (CLI) | payer MEDICARE, SELFPAY ==
[2020-11-18 14:51] VITALS: BMI 35.0
--- NOTE | 2020-11-26 07:18 | MRI_ITS ---
STUDY: MRI BRAIN WITHOUT CONTRAST REASON FOR EXAM: Male, 69 years old. Single epileptic seizure TECHNIQUE: Standardized multiplanar fat and water weighted pulse sequences were obtained. COMPARISON: None. FINDINGS: Normal size of the ventricles and extra-axial spaces for the patient''s age. Normal white matter tracts of the supratentorial brain. Calcifications noted in the falx. Normal bilateral basal ganglia. Normal thalami. There is no extra-axial fluid accumulation. Normal flow voids within the major intracranial circulation suggesting patency by spin echo criteria. Normal sella turcica, pituitary gland, infundibular stalk, optic chiasm and hypothalamus. Normal tectal plate and pineal gland. Normal midbrain, neo and medulla. Normal cerebellum. Normal basal cisterns. Normal bilateral temporal bones. Normal bilateral internal auditory canals. No demonstrated orbital abnormality, within the constraints of a routine brain study. Normal visualized paranasal sinuses. Normal calvarium and skull base. Normal visualized soft tissue structures. Normal visualized upper cervical spine. MRI/Brain without Contrast IMPRESSION: Normal unenhanced MRI of the brain. No evidence of mesial temporal sclerosis, cortical dysplasia or migrational abnormalities. Electronically Signed: Ella Stevenson, at 10:23 EDT ,
== END ==
PROVIDERS: PCP Family Medicine; Referring Provider Psychiatry & Neurology Neurology; Visit Provider Psychiatry & Neurology Neurology
DX: R56.9 Unspecified convulsions (principal)
CPT/HCPCS: 70551

== ENCOUNTER → 2020-12-05 06:09 | Outpatient (CLI) | payer MEDICARE, SELFPAY ==
[2020-11-13 11:01] VITALS: BMI 35.0
[2020-11-18 14:51] VITALS: BMI 35.0
--- NOTE | 2020-12-05 07:17 | TELEMED_ITS ---
[facility] has confirmed receipt of a request for visit. This document confirms receipt of the order initiating the consult. To find the results of the consultation, please view the patient's reports for the scanned Telemed Consult.
== END ==
PROVIDERS: PCP Family Medicine; Referring Provider Psychiatry & Neurology Neurology; Visit Provider Psychiatry & Neurology Neurology
DX: R56.9 Unspecified convulsions (principal)
CPT/HCPCS: 95819

== ENCOUNTER → 2020-12-09 14:06 | Outpatient (CLI) | payer MEDICARE, SELFPAY ==
[2020-12-09 13:46] VITALS: BMI 35.0
[2020-12-12 16:09] LABS: Albumin 3.6 g/dL (2.9-4.4); Alpha-1-Globulins 0.2 g/dL (0.0-0.4); Gamma Globulin 0.7 g/dL (0.4-1.8); Immunoglobulin A 239 mg/dL (61-437); Immunoglobulin G 757 mg/dL (603-1613); Immunoglobulin M 78 mg/dL (20-172); PROEL- TOTAL PROTEIN 6.6 g/dL (6.0-8.5)
== END ==
PROVIDERS: PCP Family Medicine; Referring Provider Psychiatry & Neurology Neurology; Visit Provider Psychiatry & Neurology Neurology
DX: G62.9 Polyneuropathy, unspecified (principal)
CPT/HCPCS: 36415; 82784; 84165; 86334; 86335